=== PATIENT | female | born 1960 | race Caucasian/White ===

== ENCOUNTER 2021-01-15 09:14 | Outpatient (REF) | payer OTHER, SELFPAY ==
[2021-01-15 10:07] LABS: MANUAL DIFF FLAG NO
[2021-01-15 10:15] LABS: Basophils Percent Auto 0.6 % (0-2); Eosinophils Absolute Auto 0.1 X10*3/uL (0.0-0.4); Eosinophils Percent Auto 2.1 % (0-4); Hematocrit 42.7 % (37-47); Hemoglobin 13.8 g/dl (12.0-16.0); Imm Gran Abs Auto 0.01 X10*3/uL (0.00-0.03); Imm Gran Pct Auto 0.2 % (0.0-0.4); Lymphocytes Absolute Auto 2.3 X10*3/uL (1.2-4.9); Lymphocytes Percent Auto 36.5 % (20-40); Mean Corpuscular HGB Conc 32.3 g/dl (31.0-35.0); Mean Corpuscular Hemoglobin 28.8 pg (27.0-33.0); Mean Corpuscular Volume 89.1 fL (80-98); Monocytes Absolute Auto 0.4 X10*3/uL (0.1-1.2); Monocytes Percent Auto 6.1 % (2-11); Neutrophils Absolute Auto 3.4 X10*3/uL (2.0-8.3); Neutrophils Percent Auto 54.5 % (45-73); Platelet Count 399 X10*3/uL (160-400); Red Blood Count 4.79 X10*6/uL (4.20-5.50); Red Cell Distribution Width 13.2 % (11.0-16.0); White Blood Count 6.2 X10*3/uL (4.8-10.8)
[2021-01-15 10:33] LABS: Alanine Aminotransferase 9 U/L (0-31); Albumin Level 4.1 g/dL (3.5-5.0); Alkaline Phosphatase 102 U/L (39-117); Anion Gap 10 (12-20); Aspartate Amino Transferase 15 U/L (5-31); Bilirubin Total 0.4 mg/dL (0.0-1.0); Blood Urea Nitrogen 11 mg/dL (9-16); Calcium 9.4 mg/dL (8.4-10.2); Carbon Dioxide 29 mmol/L (22-29); Chloride 105 mmol/L (96-108); Cholesterol 248 mg/dL; Estimated Glomerular Filt Rate > 60; Glucose Fasting 98 mg/dL (60-99); HDL Cholesterol 50 mg/dL; LDL Cholesterol Calculated 175 mg/dl; Potassium 3.9 mmol/L (3.3-5.1); Sodium 140 mmol/L (135-145); Total Protein 6.9 g/dL (6.5-8.0); Triglycerides 115 mg/dL
[2021-01-17 16:56] LABS: Lyme Abs Screen <0.90 index
== END 2021-01-15 09:15 | disposition home or self-care (01) ==
LOC: HO.LAB 09:14
PROVIDERS: PCP Internal Medicine; Visit Provider Internal Medicine
DX: Z00.00 Encounter for general adult medical examination without abnormal findings (principal); E55.9 Vitamin D deficiency, unspecified
CPT/HCPCS: 36415; 80053; 80061; 82306; 85025; 86617; 86618

== ENCOUNTER 2021-01-24 07:38 | Outpatient (REF) | payer OTHER, SELFPAY ==
--- NOTE | ~2021-01-24 | MM_ITS ---
EXAMINATION: MM SCREENING DIGITAL BREAST TOMOSYNTHESIS, BILATERAL CLINICAL INFORMATION: Screening. Asymptomatic. The lifetime risk of breast cancer based on the Tyrer-Cuzick Model is 4%. COMPARISON: Mammography: 05/27/2014, 04/10/2013 TECHNIQUE: Digital breast tomosynthesis is performed in both the craniocaudal and mediolateral oblique views along with computer-aided detection (CAD). Synthesized 2D images are generated from the tomosynthesis. FINDINGS: There are scattered areas of fibroglandular density (ACR BI-RADS breast composition Category b). There are no significant masses, abnormal calcifications, or other abnormalities. Parenchymal pattern is similar to prior studies. Skin contours are smooth. MM/MM tomosynthesis screening BI IMPRESSION: No mammographic evidence of malignancy. ASSESSMENT: BI-RADS 1: Negative RECOMMENDATION: Routine annual mammography screening. This patient's information was entered into a reminder system with a target due date for their next mammogram.
== END 2021-01-24 07:39 | disposition home or self-care (01) ==
LOC: HO.MAMMO 07:38
PROVIDERS: Visit Provider Internal Medicine
DX: Z12.31 Encounter for screening mammogram for malignant neoplasm of breast (principal)
CPT/HCPCS: 77063; 77067

== ENCOUNTER 2021-05-10 12:13 | Outpatient (REF) | payer OTHER, SELFPAY ==
--- NOTE | ~2021-05-10 | XR_ITS ---
EXAMINATION: XR FOOT, RIGHT CLINICAL INFORMATION: Fall. Right foot injury. Question 1st and 2nd toe fractures. COMPARISON: Right ankle radiographs dated 11/08/2016. TECHNIQUE: AP, lateral, and oblique views of the right foot. FINDINGS: Nondisplaced, oblique fracture through the medial base of the 1st proximal phalanx which contacts the 1st metatarsophalangeal articular surface. No additional fracture or dislocation. No joint space narrowing or marginal osteophytes. No osseous erosion. Small plantar calcaneal spur. XR/XR foot RT min 3V IMPRESSION: Nondisplaced, oblique fracture through the medial base of the 1st proximal phalanx which contacts the 1st metatarsophalangeal articular surface.
== END 2021-05-10 12:14 | disposition home or self-care (01) ==
LOC: HO.XRAY 12:13
PROVIDERS: PCP Internal Medicine; Visit Provider Internal Medicine
DX: S99.912D Unspecified injury of left ankle, subsequent encounter (principal); Z91.81 History of falling
CPT/HCPCS: 73630

== ENCOUNTER 2021-12-21 07:49 | Outpatient (REF) | payer OTHER, SELFPAY ==
[2021-12-21 10:45] LABS: MANUAL DIFF FLAG NO
[2021-12-21 10:54] LABS: Appearance Urine CLEAR; Color Urine YELLOW; Glucose Urine UA NEG (NEG); Leukocyte Esterase Urine NEG (NEG); Nitrite Urine NEG (NEG); PH 5.5 (5.0-8.0); Specific Gravity - Urine >= 1.030 (1.005-1.025); Urine Blood TRACE (NEG); Urine Ketones NEG (NEG); Urine Protein NEG (NEG-TRACE)
[2021-12-21 10:56] LABS: Basophils Absolute Auto 0.1 X10*3/uL (0.0-0.2); Basophils Percent Auto 1.2 % (0-2); Eosinophils Absolute Auto 0.2 X10*3/uL (0.0-0.4); Eosinophils Percent Auto 3.1 % (0-4); Hematocrit 39.3 % (37.0-47.0); Hemoglobin 12.7 g/dl (12.0-16.0); Imm Gran Abs Auto 0.02 X10*3/uL (0.00-0.03); Imm Gran Pct Auto 0.3 % (0.0-0.4); Lymphocytes Absolute Auto 2.6 X10*3/uL (1.2-4.9); Lymphocytes Percent Auto 38.1 % (20-40); Mean Corpuscular HGB Conc 32.3 g/dl (31.0-35.0); Mean Corpuscular Hemoglobin 29.2 pg (27.0-33.0); Mean Corpuscular Volume 90.3 fL (80.0-98.0); Mean Platelet Volume 8.9 fL (9.4-12.3); Monocytes Absolute Auto 0.4 X10*3/uL (0.1-1.2); Neutrophils Absolute Auto 3.5 x10*3/uL (2.0-8.3); Neutrophils Percent Auto 51.3 % (45-73); Platelet Count 370 X10*3/uL (160-400); Red Blood Count 4.35 X10*6/uL (4.20-5.50); Red Cell Distribution Width 12.9 % (11.0-16.0); White Blood Count 6.7 X10*3/uL (4.8-10.8)
[2021-12-21 11:05] LABS: Alanine Aminotransferase 37 U/L (0-31); Albumin Level 3.8 g/dL (3.5-5.0); Alkaline Phosphatase 128 U/L (39-117); Anion Gap 11 (12-20); Aspartate Amino Transferase 43 U/L (5-31); Bilirubin Total 0.5 mg/dL (0.0-1.0); Blood Urea Nitrogen 13 mg/dL (9-16); Calcium 9.2 mg/dL (8.4-10.2); Carbon Dioxide 28 mmol/L (22-29); Chloride 104 mmol/L (96-108); Cholesterol 213 mg/dL; Estimated Glomerular Filt Rate 50; Glucose Fasting 92 mg/dL (60-99); HDL Cholesterol 54 mg/dL; LDL Cholesterol Calculated 143 mg/dl; Potassium 4.1 mmol/L (3.3-5.1); Sodium 139 mmol/L (135-145); Total Protein 6.8 g/dL (6.5-8.0); Triglycerides 83 mg/dL
[2021-12-21 11:29] LABS: Vitamin D 25-OH Total 13.9 ng/mL (>30)
[2021-12-21 11:33] LABS: Calcium Oxalate Crystals Urine 2+ /LPF; RBC Urine 0-2 /HPF (0); Squamous Epithelial Cell Urine TRACE /LPF; WBC Urine 0 /HPF (0-4)
== END 2021-12-21 07:50 | disposition home or self-care (01) ==
LOC: HO.10HDL 07:49
PROVIDERS: Visit Provider Internal Medicine
DX: Z00.00 Encounter for general adult medical examination without abnormal findings (principal)
CPT/HCPCS: 36415; 80053; 80061; 81001; 82306; 85025

== ENCOUNTER 2022-01-25 08:31 | Outpatient (REF) | payer OTHER, SELFPAY ==
--- NOTE | ~2022-01-25 | MM_ITS ---
EXAMINATION: MM SCREENING DIGITAL BREAST TOMOSYNTHESIS, BILATERAL CLINICAL INFORMATION: Screening. Asymptomatic. The lifetime risk of breast cancer based on the Tyrer-Cuzick Model is 4%. COMPARISON: Mammography: 01/24/2021, 05/27/2014, 04/10/2013 TECHNIQUE: Digital breast tomosynthesis is performed in both the craniocaudal and mediolateral oblique views along with computer-aided detection (CAD). Synthesized 2D images are generated from the tomosynthesis. FINDINGS: There are scattered areas of fibroglandular density (ACR BI-RADS breast composition Category b). There are no significant masses, abnormal calcifications, or other abnormalities. No developing density. Parenchymal pattern is similar to prior studies. The axilla and skin contours are unremarkable. MM/MM tomosynthesis screening BI IMPRESSION: No mammographic evidence of malignancy. ASSESSMENT: BI-RADS 1: Negative RECOMMENDATION: Routine annual mammography screening. This patient's information was entered into a reminder system with a target due date for their next mammogram.
--- NOTE | ~2022-01-25 | MM_ITS ---
EXAMINATION: BONE DENSITOMETRY CLINICAL INDICATION: Menopause. COMPARISON: Baseline BD dated 10/22/2009. TECHNIQUE: Using a MobilePro DXA System (software version: 13.1) manufactured by [employer], dual-energy x-ray absorptiometry was performed of the lumbar spine and left hip. The images are of good technical quality. Summary results are attached. FINDINGS: AP SPINE L1-L4: Current: BMD 0.820 g/cm2, Z-score -1.7, T-score -3.0, osteoporosis, 15.6% decrease from baseline (<5% change is not significant). Baseline: BMD 0.971 g/cm2. LEFT FEMUR, NECK: Current: BMD 0.735 g/cm2, Z-score -0.9, T-score -2.2, osteopenia. Baseline: BMD 0.793 g/cm2. LEFT FEMUR, TOTAL: Current: BMD 0.743 g/cm2, Z-score -1.1, T-score -2.1, osteopenia, 6.1% decrease from baseline (<5% change is not significant). Baseline: BMD 0.791 g/cm2. IDENTIFIED RISK FACTORS: Early menopause, secondary osteoporosis, history of fracture (adult). HISTORY OF FRACTURE: Ankle. MEDICATIONS: Vitamin D. MM/XR DEXA axial skeleton IMPRESSION: 1. DIAGNOSIS: Osteoporosis based on the lowest T-score value of -3.0 in the lumbar spine applying World Health Organization criteria. 2. 10-YEAR FRACTURE RISK PREDICTION, FRAX: According to the guidelines, FRAX calculation should only be performed on patients in the osteopenia bone density category. Therefore, FRAX was not performed on this patient. 3. Treatment Recommendations: NOF guidelines recommend consideration for treatment in postmenopausal women and men age 50 and older presenting with the following: -A hip or vertebral (clinical or morphometric) fracture. -T-score less than or equal to -2.5 at the femoral neck or spine after appropriate evaluation to exclude secondary causes. -Low bone mass at the hip or spine and a 10-year fracture probability by FRAX of greater than or equal to 3% for hip fracture or greater than or equal to 20% for major osteoporotic fracture based on the [place] adapted WHO algorithm. 4. Other Recommendations: All treatment decisions require clinical judgment and consideration of individual patient factors, including patient preferences, comorbidities, previous drug use, risk factors not captured in the FRAX model (e.g. frailty, falls, vitamin D deficiency, increased bone turnover, interval significant decline in bone density) and possible under or overestimation of fracture risk by FRAX. Additional medical evaluation for secondary cause of low bone mineral density may be appropriate. FUTURE SCAN RECOMMENDATION: People with diagnosed cases of osteoporosis or at high risk for fracture should have regular bone mineral density tests. For patients eligible for Medicare, routine testing is allowed once every 2 years. The testing frequency can be increased to one year for patients who have rapidly progressing disease, those who are receiving or discontinuing medical therapy to restore bone mass, or have additional risk factors.
== END 2022-01-25 08:32 | disposition home or self-care (01) ==
LOC: HO.MAMMO 08:31
PROVIDERS: PCP Internal Medicine; Visit Provider Internal Medicine
DX: Z13.21 Encounter for screening for nutritional disorder (principal); Z78.0 Asymptomatic menopausal state
CPT/HCPCS: 77063; 77067; 77080

== ENCOUNTER 2022-11-15 12:02 | Outpatient (REF) | payer OTHER, SELFPAY ==
[2022-11-15 13:43] LABS: MANUAL DIFF FLAG NO
[2022-11-15 13:47] LABS: Basophils Percent Auto 0.6 % (0-2); Eosinophils Absolute Auto 0.1 X10*3/uL (0.0-0.4); Eosinophils Percent Auto 2.2 % (0-4); Hematocrit 37.3 % (37.0-47.0); Hemoglobin 12.4 g/dl (12.0-16.0); Imm Gran Abs Auto 0.01 X10*3/uL (0.00-0.03); Imm Gran Pct Auto 0.2 % (0.0-0.4); Lymphocytes Absolute Auto 2.1 X10*3/uL (1.2-4.9); Lymphocytes Percent Auto 32.4 % (20-40); Mean Corpuscular HGB Conc 33.2 g/dl (31.0-35.0); Mean Corpuscular Volume 90.3 fL (80.0-98.0); Mean Platelet Volume 9.5 fL (9.4-12.3); Monocytes Absolute Auto 0.4 X10*3/uL (0.1-1.2); Monocytes Percent Auto 6.9 % (2-11); Neutrophils Absolute Auto 3.7 x10*3/uL (2.0-8.3); Neutrophils Percent Auto 57.7 % (45-73); Platelet Count 347 X10*3/uL (160-400); Red Blood Count 4.13 X10*6/uL (4.20-5.50); Red Cell Distribution Width 13.5 % (11.0-16.0); White Blood Count 6.4 X10*3/uL (4.8-10.8)
[2022-11-15 14:18] LABS: Alanine Aminotransferase 6 U/L (0-31); Albumin Level 3.8 g/dL (3.5-5.0); Alkaline Phosphatase 92 U/L (39-117); Anion Gap 11 (12-20); Aspartate Amino Transferase 17 U/L (5-31); Bilirubin Total 0.7 mg/dL (0.0-1.0); Blood Urea Nitrogen 10 mg/dL (9-16); Calcium 8.9 mg/dL (8.4-10.2); Carbon Dioxide 28 mmol/L (22-29); Chloride 107 mmol/L (96-108); Cholesterol 227 mg/dL; Estimated Glomerular Filt Rate 59; Glucose Fasting 85 mg/dL (60-99); HDL Cholesterol 52 mg/dL; LDL Cholesterol Calculated 155 mg/dl; Potassium 3.7 mmol/L (3.3-5.1); Sodium 142 mmol/L (135-145); Total Protein 6.5 g/dL (6.5-8.0); Triglycerides 100 mg/dL
[2022-11-15 14:39] LABS: Free T4 (Free Thyroxine) 1.05 ng/dL (0.71-1.85); Thyroid Stimulating Hormone 1.12 uIU/mL (0.32-4.0); Vitamin D 25-OH Total 27.6 ng/mL (>30)
== END 2022-11-15 12:03 | disposition home or self-care (01) ==
LOC: HO.10HDL 12:02
PROVIDERS: Visit Provider Internal Medicine
DX: Z00.00 Encounter for general adult medical examination without abnormal findings (principal); E03.9 Hypothyroidism, unspecified
CPT/HCPCS: 36415; 80053; 80061; 82306; 84439; 84443; 85025

== ENCOUNTER 2023-03-28 10:45 | Outpatient (REF) | payer OTHER, SELFPAY ==
[2023-03-29 01:59] LABS: Anion Gap 11 (12-20); Blood Urea Nitrogen 18 mg/dL (9-16); Calcium 9.1 mg/dL (8.4-10.2); Carbon Dioxide 28 mmol/L (22-29); Chloride 106 mmol/L (96-108); Estimated Glomerular Filt Rate > 60; Glucose Random 86 mg/dL (60-115); Potassium 3.9 mmol/L (3.3-5.1); Sodium 141 mmol/L (135-145)
== END 2023-03-28 10:46 | disposition home or self-care (01) ==
LOC: HO.10HDL 10:45
PROVIDERS: Visit Provider Internal Medicine
DX: I10 Essential (primary) hypertension (principal)
CPT/HCPCS: 36415; 80048

== ENCOUNTER 2023-06-26 08:09 | Day surgery (SDC) | payer OTHER, SELFPAY ==
--- NOTE | 2023-06-25 08:53 | HO.ANESPROP2 ---
Documented by User: Lachelle Calhoun NP 06/25/23 08:54 HPI - Anesthesia Eval Consult details Narrative: 63yo F for Colonoscopy PMFSH Past Medical History Medical History Hx of hyperlipidemia GERD (gastroesophageal reflux disease) Kirstin's thyroiditis HTN (hypertension) Surgical History Surgical History Hx of colonoscopy Social History Social History Patient Tobacco Use Status: Never used Tobacco Meds Allergies Allergy/AdvReac Type Severity Reaction Status Date / Time No Known Allergies Allergy Verified 06/25/23 08:54 Home Medications Medication Instructions Recorded Confirmed Last Taken Type amitriptyline 50 mg tablet 50 mg PO BEDTIME 06/25/23 06/25/23 Unknown History atorvastatin 10 mg tablet 10 mg PO DAILY 06/25/23 06/25/23 Unknown History bromfenac 0.07 % eye drops drp ophthalmic (eye) 06/25/23 Unknown History (Prolensa) lisinopril 10 mg tablet 10 mg PO DAILY 06/25/23 06/25/23 Unknown History moxifloxacin 0.5 % eye drops drp ophthalmic (eye) 06/25/23 Unknown History omeprazole 20 mg capsule,delayed 20 mg PO DAILY 06/25/23 06/25/23 Unknown History release topiramate 25 mg tablet 25 mg PO BID 06/25/23 06/25/23 Unknown History Exam Exam Date and Time: June 25, 2023 0853 Pertinent Lab Results Pertinent Lab Results: Laboratory Tests 11/15/22 03/28/23 12:07 10:50 WBC 6.4 Hgb 12.4 Hct 37.3 Plt Count 347 Sodium 141 Potassium 3.9 Chloride 106 Carbon Dioxide 28 BUN 18 H Creatinine 0.94 Assessment and Plan Assessment Anesthesia Assessment: Chart Reviewed Documented by User: Eulalia Roy MD 06/26/23 11:25 [facility] Active Problems Active Problems: Off meds for Cholesterol Migraine headaches. Uses sumatriptan Past Medical History Medical History Hx of hyperlipidemia GERD (gastroesophageal reflux disease) Kirstin's thyroiditis HTN (hypertension) Family History Family history of problems with anesthesia: No Surgical History Surgical History Hx of colonoscopy History of Problems with Anesthesia: No (headache/ migraine after last colonoscopy ) Social History Social History Patient Tobacco Use Status: Never used Tobacco Meds Allergies Allergy/AdvReac Type Severity Reaction Status Date / Time No Known Allergies Allergy Verified 06/25/23 08:54 Home Medications Medication Instructions Recorded Confirmed Last Taken Type amitriptyline 50 mg tablet 50 mg PO BEDTIME 06/25/23 06/25/23 Unknown History atorvastatin 10 mg tablet 10 mg PO DAILY 06/25/23 06/25/23 Unknown History bromfenac 0.07 % eye drops drp ophthalmic (eye) 06/25/23 Unknown History (Prolensa) lisinopril 10 mg tablet 10 mg PO DAILY 06/25/23 06/25/23 Unknown History moxifloxacin 0.5 % eye drops drp ophthalmic (eye) 06/25/23 Unknown History omeprazole 20 mg capsule,delayed 20 mg PO DAILY 06/25/23 06/25/23 Unknown History release topiramate 25 mg tablet 25 mg PO BID 06/25/23 06/25/23 Unknown History Exam Height,Weight and Vital Signs: Height 5 ft 2 in Weight 61.235 kg Vital Signs Temp Pulse Resp BP Pulse Ox O2 Del Method 06/26/23 09:11 97.9 F 76 18 138/97 H 98 Room Air Airway Mallampati Class: II TM Dist: >3cm (small face) Neck ROM: Full Loose/Missing/Broken Teeth: No (Denies broken, loose, missing teeth) Heart: RRR Lungs: CTAB Assessment and Plan Assessment Anesthesia Assessment: Anesthesia Plan Discussed Final Anesthetic Review Family History of Problems with Anesthesia: No History of Problems with Anesthesia: No (headache/ migraine after last colonoscopy ) NPO: Yes ASA Class: II Final Preanesthetic Review: No Changes in Pt Med Stat, Meds/Allgs Chart Reviewed, Consent Obtained/Reviewed and Anes Risks/Benef Reviewed Patient Risk: Low Procedure Risk: Low Assessment/Block/Sedation in SS: Assess/Block/Sedation-SS Anesthetic Plan Anesthetic Plan: MAC: Disposition: Standard PACU
[2023-06-26 06:07] VITALS: BMI 24.7
[2023-06-26] MEDS: Lactated Ringers 1,000 ML 100 ML IVCONT (09:05)
[2023-06-26 09:11] VITALS: BP 138/97; PULSE 76; RESP 18; TEMP 36.6; O2SAT 98
--- NOTE | 2023-06-26 10:02 | MHC.SHP ---
Pre-Procedural Eval Section A Date of Service: 06/26/23 The patient is an INPATIENT: No Changes since office visit: No Cold of Flu in the past 2 weeks, No New Medical Problems, No Changes in Medication and No Patient answered all questions The History & Physical has been completed within 30 days and I have reviewed it.: Yes Section B Chief Complaint: Encounter for screening for malignant neoplasm of Allergies: Allergies Allergy/AdvReac Type Severity Reaction Status Date / Time No Known Allergies Allergy Verified 06/25/23 08:54 Plan I have reviewed the history and physical and performed a pertinent physical examination on my patient. No changes have occurred unless specified. Time Spent With Patient Time: Total time managing care of this patient today ____ minutes.
--- NOTE | 2023-06-26 10:48 | PM.OP ---
Brief Operative Note Date of Service: 06/26/23 Pre-op diagnosis: screening Post-op diagnosis: same Surgeon: Flo Rolon MD Anesthesia: MAC Was an Passenger [employer] Super[employer] used for this Procedure?: No Estimated blood loss (mL): 0 Tourniquet time (min): 0 Pathology: none sent Condition: stable Disposition: PACU
[2023-06-26 10:54] VITALS: BP 159/91; PULSE 89; RESP 18; TEMP 36.2; O2SAT 98
[2023-06-26 11:09] VITALS: BP 140/74; PULSE 73; RESP 16; TEMP 36.2; O2SAT 99
--- NOTE | 2023-06-26 11:33 | OP_ITS ---
DATE OF SERVICE: 06/26/2023 SURGEON: Flo Rolon MD INDICATIONS: Colon cancer screening. PREOPERATIVE DIAGNOSIS: POSTOPERATIVE DIAGNOSIS: PROCEDURE PERFORMED: Colonoscopy to the terminal ileum. ESTIMATED BLOOD LOSS: COMPLICATIONS: ANESTHESIA: Monitored anesthesia care. ASSISTANTS: SPECIMENS: DESCRIPTION OF PROCEDURE: A history and physical was performed. The risks and benefits of the procedure were explained to the patient and informed consent was obtained. The patient was placed in the left lateral decubitus position. A digital rectal exam was performed and was found to be normal. The Olympus pediatric video colonoscope was introduced into the rectum and advanced to the cecum. The cecum was identified by transillumination, palpation, and identification of ileocecal valve. Examination was performed. The scope was removed. She tolerated the procedure well and was returned to the recovery area in stable condition. FINDINGS: The terminal ileum was examined and appeared normal. The visualized colonic mucosa was normal. The quality of prep was fair with some retained liquid stool and undigested food material. This was washed and suctioned as best possible. No polyps were identified. The areas that were not well seen were in the cecum and splenic flexure. Retroflexed examination was normal. There was focal hyperpigmentation in the rectosigmoid. IMPRESSION: Normal colonoscopy. RECOMMENDATIONS: 1. Follow up as needed. 2. Repeat colonoscopy is recommended in 10 years for average risk individuals. 5 year followup could be considered based on the limitations of today's prep. MD CATINA Lema/KATHIAL / [phone]
== END 2023-06-26 11:42 | disposition home or self-care (01) ==
PROVIDERS: PCP Internal Medicine; Visit Provider Internal Medicine Gastroenterology
PROC: 0DJD8ZZ Inspection of Lower Intestinal Tract, Via Natural or Artificial Opening Endoscopic (ICD-10-PCS; CPT 45378; principal; 2023-06-26 10:20)
DX: Z12.11 Encounter for screening for malignant neoplasm of colon (principal); K58.2 Mixed irritable bowel syndrome; L81.8 Other specified disorders of pigmentation; I10 Essential (primary) hypertension; E06.3 Autoimmune thyroiditis; Z79.899 Other long term (current) drug therapy
CPT/HCPCS: 45378; J2405; J2765

== ENCOUNTER 2024-06-09 17:46 | Emergency (ER) | payer OTHER, SELFPAY ==
--- NOTE | ~2024-06-09 | CT_ITS ---
EXAMINATION: CT ANGIOGRAM HEAD CT ANGIOGRAM NECK CLINICAL INFORMATION: Stroke Protocol l sided weakness with aphasia COMPARISON: Same day noncontrast head CT TECHNIQUE: Initial noncontrast employee welfare manager imaging of the head and neck was performed. Noncontrast head CT was also performed. Test bolus sequences followed by intravenous administration 70 mL of , Omnipaque 350. Helical imaging was performed in the axial plane from the aortic arch to the skull vertex. Delayed postcontrast imaging of the head was also performed. The data was processed at the cardiopulmonary technologist workstation for generation of MIP sequences. Angled MIPs and volume rendered reformatted images were also generated at an offline 3D workstation. Stenoses are assessed in accordance with NASCET criteria unless otherwise indicated. DLP: 1320 mGy-cm This CT examination was performed using dose optimization techniques as appropriate, variously including the following: *Automated exposure control. *Adjustment of mA and/or kV according to patient size (this includes techniques or standardized protocols for targeted exams where dose is matched to indication/reason for exam; i.e. extremities or head). *Use of iterative reconstruction technique. FINDINGS: CT Head: There is no evidence of acute intracranial hemorrhage or edematous territorial infarction. A few foci of hypoattenuation in the periventricular and deep white matter are consistent with mild microangiopathy. Power-white matter differentiation is preserved. The ventricles are normal in size and configuration. No evidence for obstructive hydrocephalus. No abnormal mass effect or midline shift. No extra-axial fluid collections. No pathologic intra-axial enhancement or regional oligemia. No acute soft tissue or osseous abnormalities. The mastoid air cells and paranasal sinuses are clear. CT Neck: Enlarged multinodular thyroid gland. The remaining cervical soft tissues are within normal limits. Multilevel cervical spondylosis. T3 and T5 vertebral body hemangiomas. CT Upper Chest: The visualized lung apices and upper mediastinum are within normal limits. Neck CTA: Aortic Arch: Normal contour and caliber. Classic 3 vessel branching pattern of the aortic arch. Great Vessel Origins: No significant stenosis of the branch origins. Right Common Carotid Artery: No focal stenosis or occlusion. Cervical Right Internal Carotid Artery: Normal opacification without focal stenosis or occlusion. Left Common Carotid Artery: No focal stenosis or occlusion. Cervical Left Internal Carotid Artery: Normal opacification without focal stenosis or occlusion. Cervical Right Vertebral Artery: No focal stenosis or occlusion. Cervical Left Vertebral Artery: No focal stenosis or occlusion. Brain CTA: CTA of the head is somewhat technically limited secondary to extensive venous contamination. Intracranial Internal Carotid Arteries: No focal stenosis or occlusion. Right Anterior Cerebral Artery: Normal A1 segment. Normal opacification of the distal JUSTIN segments. Left Anterior Cerebral Artery: Normal A1 segment. Normal opacification of the distal JUSTIN segments. Anterior Communicating Artery: Normal. Right Middle Cerebral Artery: Normal M1 segment of the MCA without focal stenosis or occlusion. Normal arborization of the distal segments. Left Middle Cerebral Artery: Normal M1 segment of the MCA without focal stenosis or occlusion. Normal arborization of the distal segments. Right Vertebral Artery: Normal V4 segment. Left Vertebral Artery: Normal V4 segment. Basilar Artery: Normal without focal stenosis or occlusion. Normal appearance of the proximal superior cerebellar arteries. Right Posterior Cerebral Artery: The P1 segment is diminutive. origin of the HEDGE FUND ACCOUNTANT with robust opacification of the posterior communicating artery. Normal opacification of the distal HEDGE FUND ACCOUNTANT segments. Left Posterior Cerebral Artery: configuration.. Normal opacification of the distal HEDGE FUND ACCOUNTANT segments. Normal opacification of the superior sagittal, straight, transverse, and sigmoid sinuses. CT/CT angio head neck stroke IMPRESSION: 1. No significant arterial narrowing or occlusion in the neck. 2. Somewhat technically limited CTA of the head related to contrast bolus timing and extensive venous contamination. Within this limitation, no evidence of proximal intracranial arterial high-grade stenosis or large vessel occlusion. 3. Enlarged multinodular thyroid gland. Recommend further assessment with thyroid ultrasound and correlation with thyroid function tests. Impression #1 and [address] Mayer on 06/09/2024 5:47 PM CDT Electronically signed by: Samuel Nam MD 06/09/2024 06:55 PM EDT
--- NOTE | ~2024-06-09 | CT_ITS ---
EXAMINATION: CT HEAD WITHOUT CONTRAST (STROKE PROTOCOL) CLINICAL INFORMATION: Stroke protocol. Left-sided weakness COMPARISON: CT of May 07, 2014 TECHNIQUE: Contiguous axial imaging was performed from the skull base to vertex without intravenous administration of contrast. Coronal and sagittal reformatted images are performed at CT scanner This CT examination was performed using dose optimization techniques as appropriate, variously including the following: *Automated exposure control *Adjustment of mA and/or kV according to patient size (this includes techniques or standardized protocols for targeted exams where dose is matched to indication/reason for exam; i.e. extremities or head) *Use of iterative reconstruction technique DLP: 562 mGy-cm FINDINGS: There is no evidence of acute intracranial hemorrhage or territorial infarction. No abnormal mass-effect or midline shift is seen. Power to white matter differentiation is well preserved. No extra-axial fluid collections are identified. Ventricles and sulci are proportional. There is no abnormal attenuation within the brain parenchyma. There is no osseous abnormality. The mastoid air cells and visualized portions of the paranasal sinuses are well-aerated. CT/CT head for stroke IMPRESSION: No acute intracranial pathology. This critical result was discussed with Dr. Mayer at 1816 hours hours on 06/09/2024. It was ascertained that the content and urgency of the report was understood at the time of direct communication. Electronically signed by: Adilson Torrez MD 06/09/2024 06:21 PM EDT
--- NOTE | 2024-06-09 17:50 | ECG_ITS ---
Test Reason : STROKE Blood Pressure : / mmHG Vent. Rate : 080 BPM Atrial Rate : 080 BPM P-R Int : 160 ms QRS Dur : 076 ms QT Int : 390 ms P-R-T Axes : 053 -14 023 degrees QTc Int : 449 ms Normal sinus rhythm Minimal voltage criteria for LVH, may be normal variant ( R in aVL ) Borderline ECG No previous ECGs available Referred By: Wild Garcia Electronically Signed By:MISSAEL STARKEY
[2024-06-09 17:55] VITALS: BP 166/103; BP 170/100; PULSE 89; PULSE 90; RESP 18; TEMP 36.8; O2SAT 100; O2SAT 97; BMI 26.0
[2024-06-09 18:01] LABS: MANUAL DIFF FLAG NO
--- NOTE | 2024-06-09 18:01 | ED.NEUROSD ---
HPI - Neuro Symptoms/Deficit General Chief Complaint: Stroke Stated Complaint: LKW 25 mins ago, Lside, garble speech, stroke Time Seen by Provider: 06/09/24 17:50 Source: patient Mode of arrival: EMS Limitations: no limitations History of Present Illness ED Provider: lissa JAMISON Narrative: Patient is 61 years old with hypertension migraine comes here for sudden onset of left-sided numbness tingling decreased sensations left upper extremity and difficulty in speaking while talking to her sister on the phone started at 1715 lasted for about 5 minutes when the EMS reached does no weakness noticed stroke scale was 0 Related Data Home Medications ?Medication ?Instructions ?Recorded ?Confirmed amitriptyline 50 mg tablet 50 mg PO BEDTIME 06/25/23 06/25/23 atorvastatin 10 mg tablet 10 mg PO DAILY 06/25/23 06/25/23 bromfenac 0.07 % eye drops drp ophthalmic (eye) 06/25/23 (Prolensa) lisinopril 10 mg tablet 10 mg PO DAILY 06/25/23 06/25/23 moxifloxacin 0.5 % eye drops drp ophthalmic (eye) 06/25/23 omeprazole 20 mg capsule,delayed 20 mg PO DAILY 06/25/23 06/25/23 release topiramate 25 mg tablet 25 mg PO BID 06/25/23 06/25/23 Previous Rx's ?Medication ?Instructions ?Recorded [id number]-[id number] 1 tab PO Q6H PRN haeadace #20 tabs 06/09/24 50 mg-325 mg-40 mg tablet sumatriptan succinate 50 mg tablet 50 mg PO Q2H PRN migraine headache 06/09/24 (Imitrex) #10 tabs Allergies Allergy/AdvReac Type Severity Reaction Status Date / Time No Known Allergies Allergy Verified 06/09/24 17:56 Review of Systems Review of Systems: Yes all other systems are reviewed and are negative PMFSH Past Medical History Medical History Hx of hyperlipidemia GERD (gastroesophageal reflux disease) Kirstin's thyroiditis HTN (hypertension) Surgical History Hx of colonoscopy Social History Social History Patient Tobacco Use Status: Never used Tobacco Smoked in Last 30 Days: No Use of substances other than those prescribed or required for medical reasons: No Advance Directives: No Advance Directives Information Provided: No Do you have a plan to hurt others: No Plan Patient : No Physical Exam Vital Signs: Vital Signs: Last Vital Signs Temp 98.3 F 06/09/24 20:47 Pulse 88 06/09/24 20:47 Resp 16 06/09/24 20:47 BP 141/95 H 06/09/24 20:47 Pulse Ox 95 06/09/24 20:47 O2 Del Method Room Air 06/09/24 20:47 BMI result Body Mass Index 26.0 Appearance: Alert. Oriented X3. No acute distress. Eyes: PERRLA, No Nystagmus ENT: Pharynx normal. Oral Mucosa moist Neck: Normal inspection. Neck supple. CVS: Normal heart rate and rhythm. Pulses normal. Respiratory: No respiratory distress. Equal air entry bilateral, no wheezing/rales/rhonchi Abdomen: Soft and nontender. Bowel sounds are present, no mass palpable, no CVA tenderness Skin: Skin warm and dry. Normal skin color. Normal skin turgor. Extremities: No lower extremity edema. No calf tenderness Neuro: Oriented X 3. No motor deficit. No sensory deficit.No cerebellar signs , cranial nerves II-XII intact Medications Administered Discontinued Medications Generic Name Dose Route Start Last Admin Trade Name Freq PRN Reason Stop Dose Admin Iohexol 100 ml 06/09/24 18:13 06/09/24 18:14 Iohexol 350 Mg/Ml 100 Ml Infus..Btl IV 06/09/24 18:14 70 ml ONCE ONE Administration Ondansetron HCl 4 mg 06/09/24 18:49 06/09/24 19:55 Ondansetron Hcl 4 Mg/2 Ml Vial IVPUSH 06/09/24 18:50 4 mg ONCE ONE Administration Sumatriptan Succinate 6 mg 06/09/24 18:48 06/09/24 20:23 Sumatriptan Succinate 6 Mg/0.5 Ml Vial SUBCUT 06/09/24 18:49 6 mg ONCE ONE Administration Medical Decision Making Medical Decision Making MDM Narrative: Patient with acute onset of left-sided weakness followed by headache on the right side CT head CTA negative for acute symptoms improved within few minutes no residual weakness on arrival likely patient's symptoms from migraine. Patient's headache improved after Imitrex Differential Diagnosis Differential Diagnoses: The differential diagnosis associated with the presentation includes CVA/migraine with neurological findings/TIA Admission/Observation Consideration of admission/observation: Escalation of care including admission/observation considered Lab Data MDM Lab Attestation statement: I reviewed the patient's lab results. 06/09/24 17:54 06/09/24 17:54 Labs: Lab Results 06/09/24 Range/Units 17:54 WBC 7.4 (4.8-10.8) X10*3/uL RBC 4.12 L (4.20-5.50) X10*6/uL Hgb 12.5 (12.0-16.0) g/dl Hct 36.6 L (37.0-47.0) % MCV 88.8 (80.0-98.0) fL MCH 30.3 (27.0-33.0) pg MCHC 34.2 (31.0-35.0) g/dl RDW 12.7 (11.0-16.0) % Plt Count 330 (160-400) X10*3/uL MPV 8.1 L (9.4-12.3) fL Immature Gran % (Auto) 0.3 (0.0-0.4) % Neut % (Auto) 46.5 (45-73) % Lymph % (Auto) 41.4 H (20-40) % [place] % (Auto) 8.1 (2-11) % Eos % (Auto) 2.8 (0-4) % Baso % (Auto) 0.9 (0-2) % Lymph # (Auto) 3.1 (1.2-4.9) X10*3/uL [place] # (Auto) 0.6 (0.1-1.2) X10*3/uL Eos # (Auto) 0.2 (0.0-0.4) X10*3/uL Baso # (Auto) 0.1 (0.0-0.2) X10*3/uL Abs Immat Gran (auto) 0.02 (0.00-0.03) X10*3/uL Absolute Neuts (auto) 3.5 (2.0-8.3) x10*3/uL Absolute Nucleated RBC 0.000 (0.0-0.012) X10*3/uL Nucleated RBC % (auto) 0.0 (0.0-0.2) /100WBC Hold Purple Top SEE NOTE PT 10.4 L (10.9-12.4) SEC INR 0.9 (0.9-1.1) APTT 29.0 (26.0-36.8) SEC Sodium 139 (135-145) mmol/L Potassium 4.1 (3.3-5.1) mmol/L Chloride 105 (96-108) mmol/L Carbon Dioxide 24 (22-29) mmol/L Anion Gap 14 (12-20) BUN 11 (9-16) mg/dL Creatinine 1.12 (0.5-1.4) mg/dL Estim Creat Clear Calc 45.3 Estimated GFR 49 Random Glucose 108 (60-115) mg/dL Calcium 9.4 (8.4-10.2) mg/dL Troponin I High Sens < 2.7 (<3.5-17.0) ng/L Triglycerides 187 H (<150) mg/dL Cholesterol 256 H (<200) mg/dL LDL Cholesterol, Calc 160 H (<100) mg/dL HDL Cholesterol 59 (>40) mg/dL Radiology Impression Discussion of test interpretation with radiology: I have reviewed the radiologist's reading. Radiologist Impression: Negative CT head and negative CTA head and neck NIH Stroke Scale Internal: Initial- Upon Arrival Level of Consciousness: Alert Best Gaze: Normal Visual: No visual loss Facial Palsy: Normal Motor Arm (Right): No drift Motor Arm (Left): No drift Motor Leg (Right): No drift Motor Leg (Left): No drift Limb Ataxia: Absent Sensory: Normal Best Language: No aphasia Dysarthia: Normal Extinction and Inattention: No abnormality Critical Care Time Critical Care Time Critical Care Time: Yes Total Critical Care Time: 55 Attestation: The patient was critically ill with a high probability of imminent or life threatening deterioration. I spent greater than 60??minutes of discontinuous time evaluating the patient,delivering critical care at the bedside, discussing and evaluating pertinent data with consultants. Critical care time does not include time spent performing separately billable procedures or teaching. Total time spent performing critical care was 55???minutes. Discharge Plan Discharge Clinical Impression: Migraine Patient Disposition: Home, Self-Care Instructions: Migraine Headache (ED) Additional Instructions: Your symptoms were from the migraine headache No finding of stroke were seen Take Imitrex as prescribed 1 tablet at onset of headache may repeat in 2 hours if headache continues maximum 2 tablets in 24 hours Also you may take Fioricet 1 tablet every 6 hours if headache continues Follow with your PCP Prescriptions: New sumatriptan succinate [Imitrex] 50 mg tablet 50 mg PO Q2H PRN (Reason: migraine headache) Qty: 10 0RF Rx Instructions: do not exceed 2 doses per 24 hrs [id number]-jdoyzscogikwj-nzji 50-325-40 mg tablet 1 tab PO Q6H PRN (Reason: haeadace) Qty: 20 0RF No Action atorvastatin 10 mg tablet 10 mg PO DAILY topiramate 25 mg tablet 25 mg PO BID amitriptyline 50 mg tablet 50 mg PO BEDTIME lisinopril 10 mg tablet 10 mg PO DAILY omeprazole 20 mg capsule,delayed release(DR/EC) 20 mg PO DAILY moxifloxacin 0.5 % drops ophthalmic (eye) Prolensa 0.07 % drops ophthalmic (eye) Interventions: ED Discharge Assessment Last Done: 06/09/24 20:47 Discharge Date/Time: 06/09/24 20:51 Print Language: Frisian
[2024-06-09 18:05] LABS: Basophils Absolute Auto 0.1 X10*3/uL (0.0-0.2); Basophils Percent Auto 0.9 % (0-2); Eosinophils Absolute Auto 0.2 X10*3/uL (0.0-0.4); Eosinophils Percent Auto 2.8 % (0-4); Hematocrit 36.6 % (37.0-47.0); Hemoglobin 12.5 g/dl (12.0-16.0); Imm Gran Abs Auto 0.02 X10*3/uL (0.00-0.03); Imm Gran Pct Auto 0.3 % (0.0-0.4); Lymphocytes Absolute Auto 3.1 X10*3/uL (1.2-4.9); Lymphocytes Percent Auto 41.4 % (20-40); Mean Corpuscular HGB Conc 34.2 g/dl (31.0-35.0); Mean Corpuscular Hemoglobin 30.3 pg (27.0-33.0); Mean Corpuscular Volume 88.8 fL (80.0-98.0); Mean Platelet Volume 8.1 fL (9.4-12.3); Monocytes Absolute Auto 0.6 X10*3/uL (0.1-1.2); Monocytes Percent Auto 8.1 % (2-11); Neutrophils Absolute Auto 3.5 x10*3/uL (2.0-8.3); Neutrophils Percent Auto 46.5 % (45-73); Platelet Count 330 X10*3/uL (160-400); Red Blood Count 4.12 X10*6/uL (4.20-5.50); Red Cell Distribution Width 12.7 % (11.0-16.0); White Blood Count 7.4 X10*3/uL (4.8-10.8)
[2024-06-09 18:11] LABS: INTERNATIONAL NORM RATIO 0.9 (0.9-1.1); Prothrombin Time 10.4 SEC (10.9-12.4)
[2024-06-09] MEDS: iohexoL 350 MG/ML 100 ML INFUS..BTL IV (18:14)
[2024-06-09 18:17] LABS: Stroke Lab Use COMPLETE
[2024-06-09 18:18] LABS: Anion Gap 14 (12-20); Blood Urea Nitrogen 11 mg/dL (9-16); Calcium 9.4 mg/dL (8.4-10.2); Carbon Dioxide 24 mmol/L (22-29); Chloride 105 mmol/L (96-108); Cholesterol 256 mg/dL (<200); Creatinine Clr Calc Pharmacy 45.3; Estimated Glomerular Filt Rate 49; Glucose Random 108 mg/dL (60-115); HDL Cholesterol 59 mg/dL (>40); LDL Cholesterol Calculated 160 mg/dL (<100); Potassium 4.1 mmol/L (3.3-5.1); Sodium 139 mmol/L (135-145); Triglycerides 187 mg/dL (<150)
[2024-06-09 18:25] LABS: Troponin-I High Sensitivity < 2.7 ng/L (<3.5-17.0)
[2024-06-09] MEDS: ondansetron HCL 4 MG/2 ML VIAL IVPUSH (19:55)
[2024-06-09] MEDS: SUMAtriptan succinate 6 MG/0.5 ML VIAL SUBCUT (20:23)
[2024-06-09 20:47] VITALS: BP 141/95; PULSE 88; RESP 16; TEMP 36.8; O2SAT 95
== END 2024-06-09 20:51 | disposition home or self-care (01) ==
PROVIDERS: Emergency Provider Internal Medicine; PCP Internal Medicine
DX: G43.909 Migraine, unspecified, not intractable, without status migrainosus (principal); R20.2 Paresthesia of skin; R29.700 NIHSS score 0; I10 Essential (primary) hypertension; Z79.899 Other long term (current) drug therapy; Z79.02 Long term (current) use of antithrombotics/antiplatelets
CPT/HCPCS: 36415; 70450; 70496; 70498; 80048; 80061; 84484; 85025; 85610; 85730; 93005; 96372; 96374; 99284; J2405; J3030; Q9967

== ENCOUNTER 2024-07-09 06:58 | Outpatient (REF) | payer OTHER, SELFPAY ==
[2024-07-09 08:00] LABS: Cholesterol 220 mg/dL (<200); HDL Cholesterol 57 mg/dL (>40); LDL Cholesterol Calculated 146 mg/dL (<100); Triglycerides 88 mg/dL (<150)
[2024-07-09 08:18] LABS: Free T4 (Free Thyroxine) 0.87 ng/dL (0.71-1.85); Thyroid Stimulating Hormone 2.25 uIU/mL (0.32-4.0); Vitamin D 25-OH Total 51.8 ng/mL (>30)
[2024-07-10 18:08] LABS: Thyroid Peroxidase Antibodies 600 IU/mL (<9)
== END 2024-07-09 06:59 | disposition home or self-care (01) ==
LOC: HO.LAB 06:58
PROVIDERS: PCP Internal Medicine; Visit Provider Internal Medicine
DX: I10 Essential (primary) hypertension (principal); E55.9 Vitamin D deficiency, unspecified
CPT/HCPCS: 36415; 80061; 82306; 84439; 84443; 86376

== ENCOUNTER 2025-03-16 14:52 | Outpatient (AMB) | payer OTHER, SELFPAY ==
--- NOTE | 2025-03-16 14:56 | MHC.PC.OV ---
Vital Signs 03/16/25 15:03 Height 5 ft 2 in Weight 61.689 kg BMI 24.9 BP 134/94 H Blood Pressure Location Lt brachial Position Sitting Respiration 16 Pulse 90 Temp 97.8 F Temp Source Temporal Artery Scan Pulse Oximetry (%) 96 Oxygen Delivery Method Room Air Intake Visit Reasons: thyroid - see comments Director Of Infection Prevention Required: No Accompanied by: Self / Same As Patient Allergies No Known Allergies Allergy (Verified 03/16/25 14:56) Medication List - Last Reconciled 03/16/25 by SUSAN Sorenson amitriptyline 50 mg PO BEDTIME aspirin 81 mg PO DAILY buspirone 10 mg PO BID PRN xygfvsrozs-civfddjbtwhum-spuf 50-325-40 mg 1 tab PO Q6H PRN chlordiazepoxide-clidinium 5-2.5 mg (Librax (with clidinium)) 1 cap PO TID lisinopril 10 mg PO DAILY multivitamin 1 tab PO DAILY omeprazole 20 mg PO DAILY sumatriptan succinate (Imitrex) 50 mg PO Q2H PRN triamcinolone acetonide 0.1% 1 appl topical BID PRN HPI HPI Comments History of Present Illness Details 65-year-old female with history of hyperlipidemia, hypertension, complex migraines, GERD, 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 Hypertension-blood pressure 150/98. She has not been taking lisinopril. Does take blood pressures at home and reports these have been elevated as well Hyperlipidemia-previously on statin Complex migraines-follows with Dr. Santos. On amitriptyline for prevention using Imitrex as needed. 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 Previous US available for review shows thyroid normal in size but with multiple nodules, largest R 1.6 x .1 x 4.9cm, heterogenous. Reports compressive symptoms with hoarse voice ongoing x 1 years. No pain or dysphagia. Symptomatic with cold intolerance, hair loss, fatigue. IBS- using librex for prevention Osteoporosis-taking daily vitamin, but unsure of dose of vitamin-D and calcium. Or due for DEXA scan, last T-score -3 Concerns: Reports purple spots on the arms bilaterally. Does take aspirin Hair loss as above Itchy rash on the elbows bilaterally. No known history of psoriasis Health Maintenance: Due for screening mammogram Due for dexa scan Colonoscopy UTD ROS: General: No fevers, malaise, unintentional weight loss HEENT: No blurred vision, diplopia. No sore throat, nasal congestion, rhinorrhea, sinus pain, ear pain Cardiovascular: No chest pain, palpitations, or leg edema Respiratory: No shortness of breath, wheezing, cough GI: No abdominal pain, nausea, vomiting, diarrhea, constipation, melena, hematochezia : No dysuria, hematuria, increased urinary frequency, decreased urinary output MSK: No myalgia, back pain Neuro: No headaches, weakness, paresthesias Skin: No rashes or lesions EXAM: Constitutional - Awake and Alert, No apparent distress Eyes - PERRL Neck - supple, large right nodule upper thyroid nodule nontender to palpation Cardiovascular - S1S2, RRR, No edema Respiratory - Normal lung expansion, Normal respiratory effort, No respiratory distress, CTA bilaterally Extremities - no calf tenderness bilaterally, no swelling Skin - Warm/Dry. scattered petechiae of the upper extremities. Mildly erythematous patch of the extensor surface of the elbows bilaterally without any flaking or scaling Neurological - Alert & oriented x3 Psychological - Appropriate affect PFSH Medical History (Updated 03/16/25 @ 16:07 by SUSAN Sorenson) Right thyroid nodule Osteoporosis Hyperlipemia GERD (gastroesophageal reflux disease) Kirstin's thyroiditis HTN (hypertension) Surgical History (Updated 03/11/25 @ 16:36 by Coleen Xie) Hx of colonoscopy (~06/26/23) Social History Patient Tobacco Use Status: Never used Tobacco Physical exam (Primary Care) Vital Signs: Last Vital Signs Temp 97.8 F 03/16/25 15:03 Pulse 90 03/16/25 15:03 Resp 16 03/16/25 15:03 BP 134/94 H 03/16/25 15:03 Pulse Ox 96 03/16/25 15:03 Oxygen Delivery Method Room Air 03/16/25 15:03 BMI result Body Mass Index 24.9 Tobacco/Smoking Status: Tobacco use Status Patient Tobacco Use Status Never used Tobacco 03/16/25 15:05 Coding Level of Care Code New Pt Level 4 (62428) Complex EM visit Add On G2211 Diagnoses Kirstin's thyroiditis E06.3 HTN (hypertension) I10 Hyperlipemia E78.5 Hair loss L65.9 Osteoporosis M81.0 Right thyroid nodule E04.1 Dermatitis, unspecified L30.9 Petechial rash R23.3 Assessment & Plan Assessment & Plan (1) Kirstin's thyroiditis: Code(s): E06.3 - Autoimmune thyroiditis Category: Medical Plan: TSH and free T4 along with TPO antibodies ordered. Referred to endocrinology (2) HTN (hypertension): Code(s): I10 - Essential (primary) hypertension Category: Medical Plan: Has not taken lisinopril today. Resume lisinopril 10 mg daily and check blood pressures at home. Contact the office with blood pressure readings in several days. Low sodium diet (3) Hyperlipemia: Code(s): E78.5 - Hyperlipidemia, unspecified Category: Medical Plan: Lipid panel ordered. ASCVD risk score to be calculated pending results of studies (4) Hair loss: Code(s): L65.9 - Nonscarring hair loss, unspecified Category: Medical Plan: Thyroid studies, CBC, iron panel, DHEA ordered (5) Osteoporosis: Code(s): M81.0 - Age-related osteoporosis without current pathological fracture Category: Medical Plan: Preferred for DEXA scan. We will also check vitamin-D level. Continue multivitamin, to be adjusted as indicated pending results. Consider initiating Fosamax pending results (6) Right thyroid nodule: Code(s): E04.1 - Nontoxic single thyroid nodule Category: Medical Plan: Largest 5.9 cm in diameter with associated compressive symptoms. Ultrasound of the thyroid ordered. Referred to endocrinology. TSH, free T4, TPO ordered (7) Dermatitis, unspecified: Code(s): L30.9 - Dermatitis, unspecified Category: Medical Plan: . Trial triamcinolone cream twice daily (8) Petechial rash: Code(s): R23.3 - Spontaneous ecchymoses Category: Medical Plan: Likely secondary aspirin use. Check platelet count. Reassurance offered Plan Follow-up in the office in 4 months. Labs to be completed following visit today. Orders: Orders Complete Blood Count Auto Diff Today E78.5 - Hyperlipidemia, unspecified Vitamin D 25-OH Total Today E78.5 - Hyperlipidemia, unspecified Free T4 (Free Thyroxine) Today E78.5 - Hyperlipidemia, unspecified Thyroid Peroxidase Antibodies Today E78.5 - Hyperlipidemia, unspecified Thyroid Stimulating Hormone Today E78.5 - Hyperlipidemia, unspecified US thyroid Today E04.9 - Nontoxic goiter, unspecified, E06.3 - Autoimmune thyroiditis MM tomosynthesis screening BI Today Z12.31 - Encounter for screening mammogram for malignant neoplasm of breast XR DEXA axial skeleton Today M81.0 - Age-related osteoporosis without current pathological fracture IRON PROFILE Today L65.9 - Nonscarring hair loss, unspecified Basic Metabolic Panel Today E78.5 - Hyperlipidemia, unspecified Lipid Panel Today E78.5 - Hyperlipidemia, unspecified Liver Panel Today E78.5 - Hyperlipidemia, unspecified DHEA Sulfate Today E06.3 - Autoimmune thyroiditis, L65.9 - Nonscarring hair loss, unspecified Medications: New lisinopril 10 mg PO DAILY 90 tabs 1RF triamcinolone acetonide 0.1% apply to bilateral elbows 1 appl topical BID PRN 30 grams 1RF rash
[2025-03-16 15:03] VITALS: BP 134/94; PULSE 90; RESP 16; TEMP 36.6; O2SAT 96; BMI 24.9
--- OUTSIDE RECORDS SUMMARY | 2025-03-16 15:22 | XMS_ITS | Patient Health Record ---
[facility] Address [address] [place] [address] Care Team Providers Care Research Chemical Engineer Name Role Phone Bulmaro Toure MD Primary Care Provider Unavaila Chong Dukes Unavailable [phone] Reason For Referral No Information Medications Medication SIG (Take, Route, Frequency, Duration) Notes Start Date End Date Status Lisinopril Active Topamax Active Tenormin Active Limbitrol Active Problems Problem Type SNOMED Code ICD Code Onset Dates Problem Status W/U Status Risk Notes Problem Achilles bursitis (986680876) Achilles Tendonitis Bursitis (726.71) Active confirmed Problem Calcaneal spur (98756282) Calcaneal spur (726.73) Active confirmed Problem Plantar fasciitis (714847285) Plantar Fasciitis (728.71) Active confirmed Problem Tibialis tendinitis (97145286) Posterior Tibial Tendonitis (726.72) Active confirmed Plan Of Treatment No Information Insurance Providers Payer Name Payer Address Payer Phone Subscriber Number Group Number Insured Name Patient Relationship to Insured Coverage Start Date Coverage End Date [employer] ([employer]) [address] [place] [id number] [phone] [id number] Ashley Forte Self - patient is the insured Medical (General) History Medical History History ICD Code Headaches Migraines Chicken pox Measles Thyroid disorder Hypertension
--- OUTSIDE RECORDS SUMMARY | 2025-03-16 15:22 | XMS_ITS | Patient Health Record ---
Author Organization [facility] Address [address] [place] [address] Care Team Providers Care Fiction Writer Name Role Phone TANO MENDOZA Primary Care Provider Flo Ron Jr Unavailable Allergies No Known Allergies Reason For Referral No Information Medications Medication SIG (Take, Route, Frequency, Duration) Notes Start Date End Date Status Atorvastatin Calcium 10 MG 1 tablet Oral ly Once a day Active Butalbital-Acetaminophen 50-325 MG 1 tablet as needed Orally every 4 hrs Active Lisinopril 10 MG 1 tablet Orally Once a day Active Multi Adult Gummies - as directed Orally Active busPIRone HCl 10 MG 1 tablet Orally Twic e a day Active MiraLax (colon prep) 17 GM/SCOOP mixed with Gatorade or Crystal Light Orally begin at 5:00 p.m. the day before the procedure for 1 day 05/28/2023 Active chlordiazePOXIDE-Clidinium 5-2.5 MG 1 capsule before meals Orally Three times daily for 30 days 03/11/2025 Active Omeprazole 20 MG 1 capsule 1/2 to 1 h our before morning meal Orally Once a day Active Aspirin 81 81 MG 1 tablet Orally Once a day Active Topiramate 25 MG 1 tablet at bedtime Orally Twice a day Active Atenolol 25 MG 1 tablet Orally Once a day Active Amitriptyline HCl 50 MG 1 tablet at bedt wang Orally Once a day Active SUMAtriptan Succinate 50 MG as directed Subcutaneous Once a day Active Immunizations Vaccine Route Administration Date Status Comme nts Influenza Unknown 05/30/2022 Administered Influenza Unknown 03/11/2025 Refused Social History Alcohol Screen Question Answer Notes Did you have a drink containing alcohol in the p ast year? No Points 0 Interpretation Negative Problems Problem Type SNOMED Code ICD Code Onset Dates Problem Status W/U Status Risk Notes Problem [id number] Colon cancer screening (Z12.11) Active confirmed Problem Gastroesophageal reflux disease (705077500) GERD (gastroesophag eal reflux disease) (K21.9) Active confirmed Problem 65227006 Irritable bowel syndrome, unspecified type (K58.9) Active confirmed Vital Signs Temperature 98.0 degrees Fahrenheit 03/11/2025 Blood pressure diastolic 01 mm Hg 03/11/2025 Height 62 in 03/11/2025 Blood pressure systolic 001 mm Hg 03/11/2025 Weight 134.2 lbs 03/11/2025 BMI 24.54 kg/m2 03/11/2025 Encounters Encounter Location Date Provider Diagnosis [facility] [address] [place] [address] 03/11/2025 Flo Rolon Jr Irritable bowel syndrome, unspecified type K58.9 ; Colon cancer screening Z12.11 and GERD (gastroesophageal reflux disease) K21.9 [facility] [address] [place] [address] 03/09/2025 Flo Rolon Jr Assessments Encounter Date Diagnosis (ICD Code) Assessment Notes Treatment Notes Treatment Clinical Notes Section Notes 03/11/2025 Colon cancer screening (ICD-10 - Z12.11) We discussed irritable bowel syndrome today. We discussed diet, lifestyle modifications, and weight management also for IBS and reflux. We recommended a trial of Librax which has helped her in the past. She can also use Imodium prior to going out. She will start taking this and let us know how she is doing in 1 month. Follow-up will be in 1 year. She is up-to-date on colorectal cancer screening. 03/11/2025 Irritable bowel syndrome, unspecified type (ICD-10 - K58.9) We discussed irritable bowel syndrome today. We discussed diet, lifestyle modifications, and weight management also for IBS and reflux. We recommended a trial of Librax which has helped her in the past. She can also use Imodium prior to going out. She will start taking this and let us know how she is doing in 1 month. Follow-up will be in 1 year. She is up-to-date on colorectal cancer screening. 03/11/2025 GERD (gastroesophagea l reflux disease) (ICD-10 - K21.9) We discussed irritable bowel syndrome today. We discussed diet, lifestyle modifications, and weight management also for IBS and reflux. We recommended a trial of Librax which has helped her in the past. She can also use Imodium prior to going out. She will start taking this and let us know how she is doing in 1 month. Follow-up will be in 1 year. She is up-to-date on colorectal cancer screening. Plan Of Treatment Future Test Test Name Order Date COLONOSCOPY 09/23/2012 COLONOSCOPY 05/28/2023 Next Appt Details Provider Name:Flo richter , 03/15/2026 09:20:00 AM, [address] [place] [address], [address], [place], [address], Insurance Providers Payer Name Payer Address Payer Phone Subscriber Number Group Number Insured Name Patient Relationship to Insured Coverage Start Date Coverage End Date [employer] ([employer]) [address] [place] [address] [id number] TIARA MATHEW Self - patient is the insured Medical (General) History Medical History History ICD Code hypertension Kirstin's thyroiditis Colonoscopy 07/02, normal but limited in certain areas, 5-year follow-up migraines Anxiety Surgical History Surgery Date(Month/Year)
== END 2025-03-16 15:26 | disposition home or self-care (01) ==
LOC: HO.HMCHD 14:53
PROVIDERS: PCP Physician Assistant; Visit Provider Physician Assistant
DX: E06.3 Autoimmune thyroiditis (principal); I10 Essential (primary) hypertension; E78.5 Hyperlipidemia, unspecified; L65.9 Nonscarring hair loss, unspecified; M81.0 Age-related osteoporosis without current pathological fracture; E04.1 Nontoxic single thyroid nodule; L30.9 Dermatitis, unspecified; R23.3 Spontaneous ecchymoses

== ENCOUNTER 2025-03-16 14:52 | Outpatient (REF) | payer OTHER, SELFPAY ==
[2025-03-16 15:47] LABS: MANUAL DIFF FLAG NO
[2025-03-16 17:24] LABS: Hematocrit 40.8 % (37.0-47.0); Hemoglobin 13.3 g/dl (12.0-16.0); Imm Gran Abs Auto 0.01 X10*3/uL (0.00-0.03); Imm Gran Pct Auto 0.1 % (0.0-0.4); Lymphocytes Absolute Auto 2.2 X10*3/uL (1.2-4.9); Mean Corpuscular HGB Conc 32.6 g/dl (31.0-35.0); Mean Corpuscular Hemoglobin 29.4 pg (27.0-33.0); Mean Corpuscular Volume 90.3 fL (80.0-98.0); NRBC Abs Auto 0.000 X10*3/uL (0.0-0.012); NRBC Pct Auto 0.0 /100WBC (0.0-0.2); Platelet Count 364 X10*3/uL (160-400); Red Blood Count 4.52 X10*6/uL (4.20-5.50); White Blood Count 8.1 X10*3/uL (4.8-10.8)
[2025-03-16 17:58] LABS: Alanine Aminotransferase 21 U/L (0-31); Albumin Level 4.4 g/dL (3.5-5.0); Alkaline Phosphatase 83 U/L (39-117); Anion Gap 9 (12-20); Aspartate Amino Transferase 28 U/L (5-31); Blood Urea Nitrogen 19 mg/dL (9-16); Calcium 9.2 mg/dL (8.4-10.2); Carbon Dioxide 28 mmol/L (22-29); Chloride 108 mmol/L (96-108); Cholesterol 269 mg/dL (<200); Estimated Glomerular Filt Rate 48; HDL Cholesterol 69 mg/dL (>40); Iron 65 mcg/dL (30-160); Percent Iron Saturation 30 % (15-50); Potassium 4.2 mmol/L (3.3-5.1); Sodium 141 mmol/L (135-145); Total Iron Binding Capacity 216 mcg/dL (228-428); Total Protein 7.7 g/dL (6.5-8.0); Triglycerides 152 mg/dL (<150); Unsaturated Iron Binding 151 ug/dL
[2025-03-16 18:08] LABS: Free T4 (Free Thyroxine) 0.95 ng/dL (0.71-1.85); Thyroid Stimulating Hormone 2.48 uIU/mL (0.32-4.0)
== END 2025-03-16 14:53 | disposition home or self-care (01) ==
LOC: HO.LAB 14:52
PROVIDERS: PCP Physician Assistant; Visit Provider Physician Assistant
DX: E06.3 Autoimmune thyroiditis (principal); E78.5 Hyperlipidemia, unspecified; L65.9 Nonscarring hair loss, unspecified; I10 Essential (primary) hypertension; G43.909 Migraine, unspecified, not intractable, without status migrainosus; K21.9 Gastro-esophageal reflux disease without esophagitis; M81.0 Age-related osteoporosis without current pathological fracture; L30.9 Dermatitis, unspecified; R23.3 Spontaneous ecchymoses; E04.9 Nontoxic goiter, unspecified
CPT/HCPCS: 36415; 80048; 80061; 80076; 82306; 82627; 83540; 84439; 84443; 85025; 86376

== ENCOUNTER 2025-04-10 11:19 | Outpatient (REF) | payer OTHER, SELFPAY ==
--- NOTE | ~2025-04-10 | US_ITS ---
EXAMINATION: US THYROID CLINICAL INFORMATION: Kirstin's disease. Hypothyroidism. Goiter. COMPARISON: None available. TECHNIQUE: Linear transducer grayscale and color Doppler examination with attention to the region of the thyroid. FINDINGS: SIZE: Measurements of the thyroid lobes and nodules are given in sagittal, anteroposterior and transverse dimensions respectively. Right Thyroid Lobe: 5.8 x 2.1 x 2.4 cm, volume 15.3 mL. Parenchyma: The gland echotexture is heterogeneous. Thyroid vascularity is increased. Left Thyroid Lobe: 6.0 x 1.7 x 2.0 cm, volume 10.7 mL. Parenchyma: The gland echotexture is heterogeneous. Thyroid vascularity is increased. Isthmus: 0.6 cm in maximum AP dimension. Estimated total number of nodules greater than or equal to 1 cm: 3. Camera Repairman nodules are described as follows: 1. Location: Midportion, left thyroid lobe. Size: 1.5 x 0.8 x 1.5 cm, volume 0.83 mL. Nodule characteristics: Composition: Solid (2). Echogenicity: Isoechoic (1). Shape: Not taller than wide (0). Margins: Smooth (0). Echogenic Foci: None (0). ACR TI-RADS total points: 3 ACR TI-RADS category: 3 2. Location: Upper pole, right thyroid lobe.. Size: 1.9 x 1.0 x 1.9 cm, volume 1.82 mL. Nodule characteristics: Composition: Solid (2). Echogenicity: Hypoechoic (2). Shape: Not taller than wide (0). Margins: Smooth (0). Echogenic Foci: None (0). ACR TI-RADS total points: 4 ACR TI-RADS category: 4 3. Location: Midportion, right thyroid lobe. Size: 1.9 x 0.9 x 1.4 cm, volume 1.3 mL. Nodule characteristics: Composition: Solid (2). Echogenicity: Isoechoic (1). Shape: Not taller than wide (0). Margins: Smooth (0). Echogenic Foci: None (0). ACR TI-RADS total points: 3 ACR TI-RADS category: 3 US/US thyroid IMPRESSION: ACR TI-RADS category: 3 and 4 ACR TI-RADS RECOMMENDATION REFERENCE: Ultrasound-guided fine-needle aspiration, followup ultrasound, no further follow up. * TR1 (0 point) and TR2 (2 points): No FNA or follow up. * TR3 (3 points): FNA if more than or equal to 2.5 cm in maximum dimension, followup ultrasound in 1, 3 and 5 years if 1.5 to 2.4 cm in maximum dimension. * TR4 (4-6 points): FNA if more than or equal to 1.5 cm in maximum dimension, followup ultrasound in 1, 2, 3 and 5 years if 1 to 1.4 cm in maximum dimension. * TR5 (more than or equal to 7 points): FNA if more than or equal to 1 cm in maximum dimension, followup ultrasound every year for 5 years if 0.5 to 0.9 cm in maximum dimension. * TR3, TR4 or TR5 nodules that are below the size threshold for followup receive no follow up. Electronically signed by: Jaylen Ying MD 04/10/2025 12:14 PM EDT
--- OUTSIDE RECORDS SUMMARY | 2025-04-10 11:23 | XMS_ITS | Patient Health Record ---
[facility] Address [address] [place] [address] Care Team Providers Care Salesperson Recreational Vehicles Name Role Phone Bulmaro Toure MD Primary Care Provider Unavaila Chong Dukes Unavailable [phone] Reason For Referral No Information Medications Medication SIG (Take, Route, Frequency, Duration) Notes Start Date End Date Status Lisinopril Active Topamax Active Tenormin Active Limbitrol Active Problems Problem Type SNOMED Code ICD Code Onset Dates Problem Status W/U Status Risk Notes Problem Achilles bursitis (531077338) Achilles Tendonitis Bursitis (726.71) Active confirmed Problem Calcaneal spur (27099310) Calcaneal spur (726.73) Active confirmed Problem Plantar fasciitis (999366544) Plantar Fasciitis (728.71) Active confirmed Problem Tibialis tendinitis (42333025) Posterior Tibial Tendonitis (726.72) Active confirmed Plan Of Treatment No Information Insurance Providers Payer Name Payer Address Payer Phone Subscriber Number Group Number Insured Name Patient Relationship to Insured Coverage Start Date Coverage End Date [employer] ([employer]) [address] [place] [address] [phone] [id number] Ashley Forte Self - patient is the insured Medical (General) History Medical History History ICD Code Headaches Migraines Chicken pox Measles Thyroid disorder Hypertension
== END 2025-04-10 11:20 | disposition home or self-care (01) ==
LOC: HO.HMGCX 11:19
PROVIDERS: PCP Physician Assistant; Visit Provider Physician Assistant
DX: E04.9 Nontoxic goiter, unspecified (principal); E06.3 Autoimmune thyroiditis
CPT/HCPCS: 76536

== ENCOUNTER → 2025-04-10 11:20 | Outpatient (BNV) | payer OTHER, SELFPAY | PROVIDERS: PCP Physician Assistant; Visit Provider Radiology Diagnostic Radiology | DX: E04.2 Nontoxic multinodular goiter (principal) | CPT/HCPCS: 76536 ==

== ENCOUNTER 2025-04-22 14:48 | Outpatient (AMB) | payer OTHER, SELFPAY ==
--- OUTSIDE RECORDS SUMMARY | 2025-04-22 14:54 | XMS_ITS | Patient Health Record ---
Author Organization [facility] Address [address] [place] [address] Care Team Providers Care Cloth Mercerizer Back Tender Name Role Phone Bulmaro Toure MD Primary Care Provider Unavaila Chong Dukes Unavailable [phone] Reason For Referral No Information Medications Medication SIG (Take, Route, Frequency, Duration) Notes Start Date End Date Status Lisinopril Active Topamax Active Tenormin Active Limbitrol Active Problems Problem Type SNOMED Code ICD Code Onset Dates Problem Status W/U Status Risk Notes Problem Achilles bursitis (098040852) Achilles Tendonitis Bursitis (726.71) Active confirmed Problem Calcaneal spur (92115797) Calcaneal spur (726.73) Active confirmed Problem Plantar fasciitis (428737435) Plantar Fasciitis (728.71) Active confirmed Problem Tibialis tendinitis (16318722) Posterior Tibial Tendonitis (726.72) Active confirmed Plan Of Treatment No Information Insurance Providers Payer Name Payer Address Payer Phone Subscriber Number Group Number Insured Name Patient Relationship to Insured Coverage Start Date Coverage End Date [employer] ([employer]) [address] [place] [id number] Ashley Forte Self - patient is the insured Medical (General) History Medical History History ICD Code Headaches Migraines Chicken pox Measles Thyroid disorder Hypertension
--- OUTSIDE RECORDS SUMMARY | 2025-04-22 14:55 | XMS_ITS | Patient Health Record ---
Author Organization [facility] Address [address] [place] [address] Care Team Providers Care Brush And Broom Clipper Name Role Phone TANO MENDOZA Primary Care [...] Problem Status W/U Status Risk Notes Problem 784140255 Colon cancer screening (Z12.11) Active confirmed Problem Gastroesophageal reflux disease (238378449) GERD (gastroesophag eal reflux disease) (K21.9) Active confirmed Problem 86541632 Irritable bowel syndrome, unspecified type (K58.9) Active confirmed Vital Signs Temperature 98.0 degrees Fahrenheit 03/11/2025 Blood pressure diastolic 01 mm Hg 03/11/2025 Height 62 in 03/11/2025 Blood pressure systolic 001 mm Hg 03/11/2025 Weight 134.2 lbs 03/11/2025 BMI 24.54 kg/m2 03/11/2025 Encounters Encounter Location Date Provider Diagnosis [facility] [address] [place] [id number] 03/11/2025 Flo Rolon Jr Irritable bowel syndrome, unspecified type K58.9 ; Colon cancer screening Z12.11 and GERD (gastroesophageal reflux disease) K21.9 [facility] [address] [place] [id number] 03/09/2025 Flo Rolon Jr [facility] [address] [place] [id number] 03/18/2025 Flo Rolon Jr Assessments Encounter Date Diagnosis [...] Provider Name:Flo richter , 03/15/2026 09:20:00 AM, [address] [place] [address], [address], [place], [address], Insurance Providers Payer Name Payer Address Payer Phone Subscriber Number Group Number Insured Name Patient Relationship to Insured Coverage Start Date Coverage End Date [facility] [id number] [place] [id number] TIARA MATHEW Self - patient is the insured Medical (General) History Medical History History ICD Code hypertension Kirstin's thyroiditis Colonoscopy 07/02, normal but limited in certain areas, 5-year follow-up migraines Anxiety Surgical History Surgery Date(Month/Year)
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
--- NOTE | 2025-04-22 15:34 | A.OFFVIS_ITS ---
Intake Visit Reasons: seen 2019/ migranes Allergies No Known Allergies Allergy (Verified 03/16/25 14:56) Medication List - Last Reconciled 04/22/25 by Mina Santos MD amitriptyline 50 mg PO BEDTIME aspirin 81 mg PO DAILY atorvastatin (Lipitor) 20 mg PO BEDTIME buspirone 10 mg PO BID PRN chlordiazepoxide-clidinium 5-2.5 mg (Librax (with clidinium)) 1 cap PO TID lisinopril 10 mg PO DAILY multivitamin 1 tab PO DAILY omeprazole 20 mg PO DAILY PFSH Medical History (Updated 04/22/25 @ 15:27 by Mina Santos MD) Migraine IBS (irritable bowel syndrome) Right thyroid nodule Osteoporosis Hyperlipemia GERD (gastroesophageal reflux disease) Kirstin's thyroiditis HTN (hypertension) Surgical History (Updated 03/11/25 @ 16:36 by Coleen Xie) Hx of colonoscopy (~06/26/23) Social History Patient Tobacco Use Status: Never used Tobacco Assessment & Plan Assessment & Plan (1) Migraine: Code(s): G43.909 - Migraine, unspecified, not intractable, without status migrainosus Category: Medical (2) HTN (hypertension): Code(s): I10 - Essential (primary) hypertension Category: Medical Plan Restart migraine prophylaxis with Topiramate 25mg bid Medications: New sumatriptan succinate do not exceed 2 doses per 24 hrs 100 mg PO Q4H PRN 9 tabs 5RF Migraine He adache 30 days MDD 200mg /24 hrs topiramate 25 mg PO BID 60 tabs 6RF Coding Level of Care Code New Pt Level 5 (42796) Diagnoses Migraine G43.909 HTN (hypertension) I10
== END 2025-04-22 15:34 | disposition home or self-care (01) ==
LOC: HO.HSM 14:49
PROVIDERS: PCP Physician Assistant; Referring Provider Internal Medicine; Visit Provider Psychiatry & Neurology Neurology
DX: G43.909 Migraine, unspecified, not intractable, without status migrainosus (principal); I10 Essential (primary) hypertension
CPT/HCPCS: 99204

== ENCOUNTER 2025-04-30 11:57 | Outpatient (AMB) | payer OTHER, SELFPAY ==
[2025-04-30 12:01] VITALS: BP 102/68; PULSE 83; TEMP 36.7; O2SAT 95; BMI 24.7
--- NOTE | 2025-04-30 12:01 | AM.OFFWIN_ITS ---
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 90/73 Patient Tobacco Use Status: Never used Tobacco Allergies No Known Allergies Allergy (Verified 04/30/25 12:01) Do you need a note to return to daycare/school/sports/work: Yes HPI HPI Comments History of Present Illness Details History of Present Illness - The patient is a 65-year-old female pr esenting with dizziness and lightheade dness. - She reports recent onset of dizziness and lightheadedness, accompanied by fatigue over the past five days. - Denies any shortness of breath, URI sy mptoms, urinary symptoms. - Her blood pressure has been lower than usual, with a recent measurement of 100/70 mmHg. - She has a history of hypertension and is prescribed lisinopril 10 mg, which she did not take today or yesterday. - No recent dietary changes, no weight l oss but she has started walking as exercise. - Recent lab results indicate a mildly l ow total iron binding capacity, potentially explaining her fatigue. - Her cholesterol is elevated, though he r TSH levels are normal. Physical Exam General: Cooperative, healthy appearing, comfortable, no acute distress and well developed Orientation: Patient oriented x3 Limitations: No limitations Head: Normal to inspection Ears: Hearing grossly normal bilaterally Nose: Normal External nose present Face and sinus: Normal facial exam Eyes: Appearance normal, both eyes and all related structures Neck: Normal visual inspection and Yes full ROM Respiratory: Normal respiratory effort and able to speak in complete sentences. Skin: No rashes or lesions noted Neuro: Patient oriented x3 Extremities: Normal to inspection COUNT INCLUDES THE [facility] Medical History (Updated 04/30/25 @ 12:27 by Ayana Hudson PA-C) Migraine IBS (irritable bowel syndrome) Right thyroid nodule Osteoporosis Hyperlipemia GERD (gastroesophageal reflux disease) Kirstin's thyroiditis HTN (hypertension) Surgical History (Updated 03/11/25 @ 16:36 by Coleen Xie) Hx of colonoscopy (~10/17/23) Social History Patient Tobacco Use Status: Never used Tobacco Review of Systems Const All systems reviewed & are unremarkable except as noted in HPI and below Physical Exam Vital Signs: Last Vital Signs Temp 98.0 F 04/30/25 12:01 Pulse 83 04/30/25 12:01 BP 100/70 04/30/25 12:08 Pulse Ox 95 04/30/25 12:01 Oxygen Delivery Method Room Air 04/30/25 12:01 BMI result Body Mass Index 24.7 Assessment & Plan Assessment & Plan (1) Dizziness: Code(s): R42 - Dizziness and giddiness Plan: Plan - The patient should monitor her blood pressure twice daily and stop lisinopril if it remains low. - Perhaps the walking she has started is positively impacting her BP and she no longer requires BP medicaiton. - A urine analysis was ordered to rule out a UTI, pt could not provide a sample in the office so it was ordered for her at the lab. - She is advised to follow up with her PCP or nurse nagigator within 7 to 10 days for further evaluation of lisinopril need and fatigue. Messaged PCP. - Reviewed normal Vit D, iron labs and TSH with the patient. Patient was informed and verbally consented to the use of an ambient scribe for clinic note documentation during this visit. (2) Fatigue: Code(s): R53.83 - Other fatigue Qualifiers: Fatigue type: unspecified Qualified Code(s): R53.83 - Other fatigue Plan: as above Orders: Orders UA ClnCatch+Micro w/rflx Cult Today R42 - Dizziness and giddiness, R53.83 - Other fatigue Coding Level of Care Code Est Pt Level 4 (63958) Diagnoses Dizziness R42 Fatigue, unspecified type R53.83 Fatigue type: unspecified
[2025-04-30 12:08] VITALS: BP 100/70
== END 2025-04-30 13:33 | disposition home or self-care (01) ==
PROVIDERS: PCP Physician Assistant; Visit Provider Physician Assistant
DX: R42 Dizziness and giddiness (principal); R53.83 Other fatigue

== ENCOUNTER 2025-05-05 10:06 | Outpatient (AMB) | payer OTHER, SELFPAY ==
--- NOTE | 2025-05-05 10:09 | A.OFFPC_ITS ---
Vital Signs 05/05/25 10:16 Height 5 ft 2 in Weight 59.874 kg BMI 24.1 BP 108/82 Respiration 16 Pulse 78 Pulse Source Pulse Oximeter Temp 97.6 F Temp Source Temporal Artery Scan Pulse Oximetry (%) 95 Oxygen Delivery Method Room Air Intake Visit Reasons: BP issues/dizziness - Override per Danielle on 05/01 Tripe Scraper Required: No Accompanied by: Self / Same As Patient Allergies No Known Allergies Allergy (Verified 05/05/25 10:09) HPI HPI Comments History of Present Illness Details 65-year-old female with history of hyper tension, hyperlipidemia, Kirstin's, thyroid nodule, osteoporosis presents to the office today for evaluation. She reports that for the last week, she has been experiencing significant lightheadedness that has been constant. She has not syncopized. She states that she feels weakness in the upper and lower extremities bilaterally. Denies any arthralgias or myalgias. She is also experiencing extreme fatigue. Describes paresthesias in the hands bilaterally. There is also nausea but no vomiting. Also hot flashes. No vision changes, weight loss, swelling, fevers, chills, shortness of breath, chest pain, abdominal pain, dysuria, hematuria, cough. She does occasionally get migraines but they are not associated with these symptoms. Most recent migraine was last week. She has no known history of tick bites recently but did find a tick in her hair. She does report drinking plenty of water and denies any history of diabetes/hypoglycemia. Reports symptoms are constant and are not positional in nature. She does report decreased coordination and balance. Questions atorvastatin. Discontinued lisinopril. ROS: see hpi EXAM: Constitutional - Awake and Alert, No apparent distress Eyes - PERRL Cardiovascular - S1S2, RRR, No edema Respiratory - Normal lung expansion, Normal respiratory effort, No respiratory distress, CTA bilaterally Extremities - no calf tenderness bilaterally, no swelling MSK - normal inspection, normal ROM. No swelling Skin - Warm/Dry Neurological - Alert & oriented x3. CN II-XII in tact. Moving all extremities, equal strength, normal gait. Requires assistance when standing. Negative romberg Psychological - Appropriate affect [facility] Medical History (Updated 05/05/25 @ 10:57 by SUSAN Sorenson) Migraine IBS (irritable bowel syndrome) Right thyroid nodule Osteoporosis Hyperlipemia GERD (gastroesophageal reflux disease) Kirstin's thyroiditis HTN (hypertension) Surgical History (Updated 03/11/25 @ 16:36 by Coleen Xie) Hx of colonoscopy (~06/26/23) Social History Patient Tobacco Use Status: Never used Tobacco Physical exam (Primary Care) Vital Signs: Last Vital Signs Temp 97.6 F 05/05/25 10:16 Pulse 78 05/05/25 10:16 Resp 16 05/05/25 10:16 BP 108/82 05/05/25 10:16 Pulse Ox 95 05/05/25 10:16 Oxygen Delivery Method Room Air 05/05/25 10:16 BMI result Body Mass Index 24.1 Tobacco/Smoking Status: Tobacco use Status Patient Tobacco Use Status Never used Tobacco 05/05/25 10:10 Coding Level of Care Code Est Pt Level 4 (46308) Complex EM visit Add On G2211 Diagnoses Dizziness R42 HTN (hypertension) I10 Assessment & Plan Assessment & Plan (1) Dizziness: Code(s): R42 - Dizziness and giddiness Category: Medical Plan: w/ fatigue, paresthesia, weakness. Labs as below to evaluate for anemia, thyroid abn, lyte abn normality, kidney/liver dysfunction, tick borne illness, inflammatory/autoimmune markers. Not positional to suggest orthostatic hypotension though blood pressures have dropped despite dc'ing lisinopril. EKG without abn. COnsider MRI brain and holter monitor pending results of studies. Less likely atorvastatin given onset of symptoms and clinical history. (2) HTN (hypertension): Code(s): I10 - Essential (primary) hypertension Category: Medical Plan: COntinue off lisinopril Orders: Orders IRON PROFILE Today R20.2 - Paresthesia of skin, R42 - Dizziness and giddiness, R53.83 - Other fatigue FADI Reflex Titer and Pattern Today R20.2 - Paresthesia of skin, R42 - Dizziness and giddiness, R53.83 - Other fatigue Lyme IgG/IgM w/reflex to WB Today R20.2 - Paresthesia of skin, R42 - Dizziness and giddiness, R53.83 - Other fatigue Vitamin B12 Today R20.2 - Paresthesia of skin, R42 - Dizziness and giddiness, R53.83 - Other fatigue Basic Metabolic Panel Today R20.2 - Paresthesia of skin, R42 - Dizziness and giddiness, R53.83 - Other fatigue Complete Blood Count Auto Diff Today R20.2 - Paresthesia of skin, R42 - Dizziness and giddiness, R53.83 - Other fatigue Hemoglobin A1c Today R20.2 - Paresthesia of skin, R42 - Dizziness and giddiness, R53.83 - Other fatigue Liver Panel Today R20.2 - Paresthesia of skin, R42 - Dizziness and giddiness, R53.83 - Other fatigue TSH reflex Free T4 Today R20.2 - Paresthesia of skin, R42 - Dizziness and giddiness, R53.83 - Other fatigue Vitamin D 25-OH Total Today R20.2 - Paresthesia of skin, R42 - Dizziness and giddiness, R53.83 - Other fatigue Rheumatoid Factor Today R20.2 - Paresthesia of skin, R42 - Dizziness and giddiness, R53.83 - Other fatigue Erythrocyte Sedimentation Rate Today R20.2 - Paresthesia of skin, R42 - Dizziness and giddiness, R53.83 - Other fatigue C Reactive Protein Today R20.2 - Paresthesia of skin, R42 - Dizziness and giddiness, R53.83 - Other fatigue
[2025-05-05 10:16] VITALS: BP 108/82; PULSE 78; RESP 16; TEMP 36.4; O2SAT 95; BMI 24.1
--- OUTSIDE RECORDS SUMMARY | 2025-05-05 10:49 | XMS_ITS | Patient Health Record ---
Author Organization [facility] [place] [facility] Address [address] [place] [address] Care Team Providers Care Clinical Application Manager Name Role Phone TANO MENDOZA Primary Care Provider Flo Ron Jr Unavailable [phone] Allergies No Known Allergies Reason For Referral [...] Problem Status W/U Status Risk Notes Problem 279395237 Colon cancer screening (Z12.11) Active confirmed Problem GERD (gastroesophagea l reflux disease) (K21.9) Active confirmed Problem 32620045 Irritable bowel syndrome, unspecified type (K58.9) Active confirmed Vital Signs Temperature 98.0 degrees Fahrenheit 03/11/2025 Blood pressure diastolic 01 mm Hg 03/11/2025 Height 62 in 03/11/2025 Blood pressure systolic 001 mm Hg 03/11/2025 Weight 134.2 lbs 03/11/2025 BMI 24.54 kg/m2 03/11/2025 Encounters Encounter Location Date Provider Diagnosis [facility] [address] [place] [phone] 03/11/2025 Flo Rolon Jr Irritable bowel syndrome, unspecified type K58.9 ; Colon cancer screening Z12.11 and GERD (gastroesophageal reflux disease) K21.9 [facility] [address] [place] [phone] 03/09/2025 Flo Rolon Jr [facility] [address] [place] [phone] 03/18/2025 Flo Rolon Jr Assessments Encounter Date [...] 09/23/2012 COLONOSCOPY 05/28/2023 Next Appt Details Provider Name:Floanaly richter , 03/15/2026 09:20:00 AM, [address] [place] [address], [address], [place], [address], Insurance Providers Payer Name Payer Address Payer Phone Subscriber Number Group Number Insured Name Patient Relationship to Insured Coverage Start Date Coverage End Date [facility] [employer] ([employer]) [address] [place] [id number] TIARA MATHEW Self - patient is the insured Medical (General) History Medical History History ICD Code hypertension Kirstin's thyroiditis Colonoscopy 07/02, normal but limited in certain areas, 5-year follow-up migraines Anxiety Surgical History Surgery Date(Month/Year)
--- OUTSIDE RECORDS SUMMARY | 2025-05-05 10:49 | XMS_ITS | Patient Health Record ---
[facility] Address [address] [place] [address] Care Team Providers Care Contact Worker Lithography Name Role Phone Bulmaro Toure MD Primary Care Provider Unavaila Chong Dukes Unavailable [phone] Reason For Referral No Information Medications Medication SIG (Take, Route, Frequency, Duration) Notes Start Date End Date Status Lisinopril Active Topamax Active Tenormin Active Limbitrol Active Problems Problem Type SNOMED Code ICD Code Onset Dates Problem Status W/U Status Risk Notes Problem Achilles bursitis (374584233) Achilles Tendonitis Bursitis (726.71) Active confirmed Problem Calcaneal spur (52449082) Calcaneal spur (726.73) Active confirmed Problem Plantar fasciitis (818016518) Plantar Fasciitis (728.71) Active confirmed Problem Tibialis tendinitis (51272870) Posterior Tibial Tendonitis (726.72) Active confirmed Plan Of Treatment No Information Insurance Providers Payer Name Payer Address Payer Phone Subscriber Number Group Number Insured Name Patient Relationship to Insured Coverage Start Date Coverage End Date [employer] ([employer]) [address] [place] [id number] Ashley Forte Self - patient is the insured Medical (General) History Medical History History ICD Code Headaches Migraines Chicken pox Measles Thyroid disorder Hypertension
== END 2025-05-05 11:00 | disposition home or self-care (01) ==
LOC: HO.HMCHD 10:06
PROVIDERS: PCP Physician Assistant; Visit Provider Physician Assistant
DX: R42 Dizziness and giddiness (principal); I10 Essential (primary) hypertension

== ENCOUNTER 2025-05-05 11:04 | Outpatient (REF) | payer OTHER, SELFPAY ==
[2025-05-05 13:07] LABS: MANUAL DIFF FLAG NO
[2025-05-05 13:23] LABS: Hematocrit 36.8 % (37.0-47.0); Hemoglobin 12.4 g/dl (12.0-16.0); Imm Gran Abs Auto 0.01 X10*3/uL (0.00-0.03); Imm Gran Pct Auto 0.2 % (0.0-0.4); Lymphocytes Absolute Auto 2.2 X10*3/uL (1.2-4.9); Mean Corpuscular HGB Conc 33.7 g/dl (31.0-35.0); Mean Corpuscular Hemoglobin 30.0 pg (27.0-33.0); Mean Corpuscular Volume 88.9 fL (80.0-98.0); NRBC Abs Auto 0.000 X10*3/uL (0.0-0.012); NRBC Pct Auto 0.0 /100WBC (0.0-0.2); Platelet Count 341 X10*3/uL (160-400); Red Blood Count 4.14 X10*6/uL (4.20-5.50); White Blood Count 6.2 X10*3/uL (4.8-10.8)
[2025-05-05 13:47] LABS: Appearance Urine Clear; Glucose Urine UA Negative (Negative); PH 5.5 (5.0-9.0); Specific Gravity - Urine 1.015 (1.005-1.025)
[2025-05-05 13:48] LABS: Alanine Aminotransferase 14 U/L (0-31); Albumin Level 4.2 g/dL (3.5-5.0); Alkaline Phosphatase 81 U/L (39-117); Anion Gap 12 (12-20); Aspartate Amino Transferase 25 U/L (5-31); Blood Urea Nitrogen 12 mg/dL (9-16); Calcium 9.2 mg/dL (8.4-10.2); Carbon Dioxide 27 mmol/L (22-29); Chloride 107 mmol/L (96-108); Estimated Glomerular Filt Rate 49; Iron 61 mcg/dL (30-160); Percent Iron Saturation 30 % (15-50); Potassium 4.0 mmol/L (3.3-5.1); Sodium 142 mmol/L (135-145); Total Iron Binding Capacity 202 mcg/dL (228-428); Total Protein 7.1 g/dL (6.5-8.0); Unsaturated Iron Binding 141 ug/dL
[2025-05-05 13:54] LABS: Hemoglobin A1C 132.5872 umol/L; Total Hemoglobin (HGBA1C) 3326.8380 umol/L
[2025-05-05 14:04] LABS: Vitamin B12 1419 pg/mL (200-900)
[2025-05-06 08:48] LABS: Lyme Abs Screen <0.90 index
[2025-05-13 09:08] LABS: Anti Nuclear Antibody Pattern Nuclear, Speckled; Anti Nuclear Antibody Screen POSITIVE (NEGATIVE); Anti Nuclear Antibody Titer 1:80 titer
== END 2025-05-05 11:05 | disposition home or self-care (01) ==
LOC: HO.10HDL 11:04
PROVIDERS: Physician Assistant; Visit Provider Physician Assistant
DX: R42 Dizziness and giddiness (principal); R53.83 Other fatigue; R20.2 Paresthesia of skin; Z13.0 Encounter for screening for diseases of the blood and blood-forming organs and certain disorders involving the immune mechanism; Z13.1 Encounter for screening for diabetes mellitus
CPT/HCPCS: 36415; 80048; 80076; 81001; 82306; 82607; 83036; 83540; 84443; 85025; 85652; 86038; 86039; 86140; 86431; 86617; 86618

== ENCOUNTER 2025-05-06 10:59 | Outpatient (REF) | payer OTHER, SELFPAY ==
--- OUTSIDE RECORDS SUMMARY | 2025-05-06 11:56 | XMS_ITS | Patient Health Record ---
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 Name Role Phone TANO MENDOZA Primary Care [...] Problem Status W/U Status Risk Notes Problem 684090607 Colon cancer screening (Z12.11) Active confirmed Problem GERD (gastroesophagea l reflux disease) (K21.9) Active confirmed Problem 02947208 Irritable bowel syndrome, unspecified type (K58.9) Active confirmed Vital Signs Temperature 98.0 degrees Fahrenheit 03/11/2025 Blood pressure diastolic 01 mm Hg 03/11/2025 Height 62 in 03/11/2025 Blood pressure systolic 001 mm Hg 03/11/2025 Weight 134.2 lbs 03/11/2025 BMI 24.54 kg/m2 03/11/2025 Encounters Encounter Location Date Provider Diagnosis [facility] [address] [place] [phone] 03/11/2025 Flo Rolon Jr Irritable bowel syndrome, unspecified type K58.9 ; Colon cancer screening Z12.11 and GERD (gastroesophageal reflux disease) K21.9 [facility] [address] [place] [phone] 03/09/2025 Flo Rolon Jr [facility] [address] [place] [phone] 03/18/2025 Flo Rolon Jr Assessments Encounter Date [...] Provider Name:Floanaly richter , 03/15/2026 09:20:00 AM, [address] [place] [address], [address], [place], [address], Insurance Providers Payer Name Payer Address Payer Phone Subscriber Number Group Number Insured Name Patient Relationship to Insured Coverage Start Date Coverage End Date [facility] ([employer]) [address] [place] [id number] [phone] [id number] TIARA MATHEW Self - patient is the insured Medical (General) History Medical History History ICD Code hypertension Kirstin's thyroiditis Colonoscopy 07/02, normal but limited in certain areas, 5-year follow-up migraines Anxiety Surgical History Surgery Date(Month/Year)
--- OUTSIDE RECORDS SUMMARY | 2025-05-06 11:56 | XMS_ITS | Patient Health Record ---
Author [facility] Address [address] [place] [address] Care Team Providers Care Service Or Work Dispatcher Name Role Phone Bulmaro Toure MD Primary Care Provider Unavaila Chong Dukes Unavailable [phone] Reason For Referral No Information Medications Medication SIG (Take, Route, Frequency, Duration) Notes Start Date End Date Status Lisinopril Active Topamax Active Tenormin Active Limbitrol Active Problems Problem Type SNOMED Code ICD Code Onset Dates Problem Status W/U Status Risk Notes Problem Achilles bursitis (467388866) Achilles Tendonitis Bursitis (726.71) Active confirmed Problem Calcaneal spur (42577834) Calcaneal spur (726.73) Active confirmed Problem Plantar fasciitis (167503748) Plantar Fasciitis (728.71) Active confirmed Problem Tibialis tendinitis (42870669) Posterior Tibial Tendonitis (726.72) Active confirmed Plan Of Treatment No Information Insurance Providers Payer Name Payer Address Payer Phone Subscriber Number Group Number Insured Name Patient Relationship to Insured Coverage Start Date Coverage End Date [employer] ([employer]) [address] [place] [id number] Ashley Forte Self - patient is the insured Medical (General) History Medical History History ICD Code Headaches Migraines Chicken pox Measles Thyroid disorder Hypertension
== END 2025-05-06 11:00 | disposition home or self-care (01) ==
LOC: HO.MAMMO 10:59
PROVIDERS: PCP Physician Assistant; Visit Provider Physician Assistant
DX: Z12.31 Encounter for screening mammogram for malignant neoplasm of breast (principal)
CPT/HCPCS: 77063; 77067

== ENCOUNTER → 2025-05-06 11:15 | Outpatient (BNV) | payer OTHER, SELFPAY | PROVIDERS: PCP Physician Assistant; Visit Provider Radiology Body Imaging | DX: Z12.31 Encounter for screening mammogram for malignant neoplasm of breast (principal) | CPT/HCPCS: 77063; 77067 ==

== ENCOUNTER 2025-05-22 10:50 | Outpatient (AMB) | payer OTHER, SELFPAY ==
[2025-05-22 10:56] VITALS: BP 134/90; PULSE 76; O2SAT 96; BMI 24.2
--- NOTE | 2025-05-22 10:56 | A.OFFVIS_ITS ---
Vital Signs 3 05/22/25 10:56 Height 5 ft 2 in Weight 132 lb 4.438 oz BMI 24.2 BP 134/90 H Blood Pressure Location Rt brachial Position Sitting Pulse 76 Pulse Source Pulse Oximeter Pulse Oximetry (%) 96 Oxygen Delivery Method Room Air Intake Visit Reasons: Nontoxic single thyroid nodule Intake Note: NEW Patient presents today to establish care for Nontoxic single thyroid nodule: No acute complaints reported at this time L Employment Coordinator Required: No Accompanied by: Self / Same As Patient Allergies No Known Allergies Allergy (Verified 05/05/25 10:09) HPI Comments Details: 65-year-old female with history of hypertension, hyperlipidemia, Kirstin's, thyroid nodule, osteoporosis, she is referred to Endocrinology for evaluation of nontoxic thyroid nodule. Of note she had not required treatment for Kirstin's thus far. For review of consult notes from [facility] dating 03/25/2009, she had a LEFT UPPER THYROID NODULE FNA negative for malignant cells, consistent with Kirstin's thyroiditis. Patient now reports progressive voice loss occurring over the past 1-2 years, but has exacerbated in the last few months. She reports associated fatigue, feeling always call, experiencing increased hair loss and brittle nails, but she denies weight gain, feeling slow or having swelling in the legs. She also denies compressive symptoms including dysphagia, odynophagia or cough when laying down. She does endorse having acid reflux for which she takes p.r.n. omeprazole. She also endorses hot flashes. 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 She has a family history of Two sisters on thyroid medication status post thyroidectomy, but no thyroid cancer. Physical exam General: Alert, well-nourished, no acute distress. Neck: Supple, irregular thyroid, enlarged, palpable nodule on the right thyroid no painful. Cardiac:Regular rate and rhythm, no murmurs. no edema. Lungs: Clear to auscultation bilaterally. Abdomen: Soft, non-tender. Extremities: No edema Neuro: Alert, oriented. Labs THYROID ULTRASOUND 04/10/2025 FINDINGS: SIZE: Measurements of the thyroid lobes and nodules are given in sagittal, anteroposterior and transverse dimensions respectively. Right Thyroid Lobe: 5.8 x 2.1 x 2.4 cm, volume 15.3 mL. Parenchyma: The gland echotexture is heterogeneous. Thyroid vascularity is increased. Left Thyroid Lobe: 6.0 x 1.7 x 2.0 cm, volume 10.7 mL. Parenchyma: The gland echotexture is heterogeneous. Thyroid vascularity is increased. Isthmus: 0.6 cm in maximum AP dimension. Estimated total number of nodules greater than or equal to 1 cm: 3. Certified Medical Transcriptionist nodules are described as follows: 1. Location: Midportion, left thyroid lobe. Size: 1.5 x 0.8 x 1.5 cm, volume 0.83 mL. Nodule characteristics: Composition: Solid (2). Echogenicity: Isoechoic (1). Shape: Not taller than wide (0). Margins: Smooth (0). Echogenic Foci: None (0). ACR TI-RADS total points: 3 ACR TI-RADS category: 3 2. Location: Upper pole, right thyroid lobe.. Size: 1.9 x 1.0 x 1.9 cm, volume 1.82 mL. Nodule characteristics: Composition: Solid (2). Echogenicity: Hypoechoic (2). Shape: Not taller than wide (0). Margins: Smooth (0). Echogenic Foci: None (0). ACR TI-RADS total points: 4 ACR TI-RADS category: 4 3. Location: Midportion, right thyroid lobe. Size: 1.9 x 0.9 x 1.4 cm, volume 1.3 mL. Nodule characteristics: Composition: Solid (2). Echogenicity: Isoechoic (1). Shape: Not taller than wide (0). Margins: Smooth (0). Echogenic Foci: None (0). ACR TI-RADS total points: 3 ACR TI-RADS category: 3 Previous ultrasound for comparison from based a note dated from 06/28/2016 [facility] Medical History Migraine IBS (irritable bowel syndrome) Right thyroid nodule Osteoporosis Hyperlipemia GERD (gastroesophageal reflux disease) Kirstin's thyroiditis HTN (hypertension) Surgical History Hx of colonoscopy (~06/26/23) Family History Father No problems noted. Mother No problems noted. Sister Thyroid disease Social History Alcohol intake: current Alcohol intake frequency: does not drink Patient Tobacco Use Status: Never used Tobacco Physical Exam Vital Signs: Last Vital Signs Pulse 76 05/22/25 10:56 BP 134/90 H 05/22/25 10:56 Pulse Ox 96 05/22/25 10:56 Oxygen Delivery Method Room Air 05/22/25 10:56 BMI result Body Mass Index 24.2 Assessment & Plan Assessment & Plan (1) Kirstin's thyroiditis: Code(s): E06.3 - Autoimmune thyroiditis Category: Medical (2) Goiter: Code(s): E04.9 - Nontoxic goiter, unspecified Category: Medical (3) Dysphonia: Code(s): R49.0 - Dysphonia Category: Medical Plan Assessment The patient has a right upper pole thyroid nodule that has increased in size to 1.92 cm which constitutes a 92% increase over 9 years, which increased the concerns for malignancy. Recent laboratory results confirm the patient is euthyroid. The patient reports voice loss and other symptoms; however, these are not definitively linked to the thyroid nodule or thyroid dysfunction at this time. Plan Arrange a fine-needle aspiration (FNA) biopsy of the right upper pole thyroid nodule within the next 3?6 months to assess for malignancy, given the documented increase in size. Provided detailed counseling regarding the clinical significance of the nodule?s growth, including the associated risk of malignancy and the importance of tissue diagnosis via FNA. We do not believe that her thyroid nodules are related to her dysphonia, especially as the patient does not have overt compressive symptoms. Refer the patient to an preparation plant supervisor (ENT) for a comprehensive evaluation of the vocal cords and further investigation into the etiology of the voice loss, to rule out non-thyroidal causes or possible vocal cord involvement. We discussed with the patient that a case that ENT evaluation does not bring any light on the reasons for her dysphonia and the symptom persists, we could consider discussing thyroidectomy. Orders: Referrals 2 Ear/Nose/Throat Referral R49.0 - Dysphonia Coding Level of Care Code New Pt Level 4 (49976) Diagnoses Kirstin's thyroiditis E06.3 Goiter E04.9 Dysphonia R49.0
--- OUTSIDE RECORDS SUMMARY | 2025-05-22 12:25 | XMS_ITS | Patient Health Record ---
Author Organization [facility] Address [address] [place] [address] Care Team Providers Care Principal Administrative Clerk Name Role Phone TANO MENDOZA Primary Care Provider Flo Ron Jr Unavailable [phone] Allergies No Known Allergies Reason For [...] Problem Status W/U Status Risk Notes Problem 963790560 Colon cancer screening (Z12.11) Active confirmed Problem Gastroesophageal reflux disease (682661652) GERD (gastroesophag eal reflux disease) (K21.9) Active confirmed Problem 85730086 Irritable bowel syndrome, unspecified type (K58.9) Active confirmed Vital Signs Temperature 98.0 degrees Fahrenheit 03/11/2025 Blood pressure diastolic 01 mm Hg 03/11/2025 Height 62 in 03/11/2025 Blood pressure systolic 001 mm Hg 03/11/2025 Weight 134.2 lbs 03/11/2025 BMI 24.54 kg/m2 03/11/2025 Encounters Encounter Location Date Provider Diagnosis [facility] [address] [place] [phone] 03/11/2025 Flo Rolon Jr Irritable bowel syndrome, unspecified type K58.9 ; Colon cancer screening Z12.11 and GERD (gastroesophageal reflux disease) K21.9 [facility] [address] [place] [phone] 03/09/2025 Flo Rolon Jr [facility] [address] [place] [phone] 03/18/2025 Flo Rolon Jr Assessments Encounter Date [...] Provider Name:Flo richter , 03/15/2026 09:20:00 AM, [address] [place] [address], [address], [place], [address], Insurance Providers Payer Name Payer Address Payer Phone Subscriber Number Group Number Insured Name Patient Relationship to Insured Coverage Start Date Coverage End Date [facility] ([employer]) [address] [place] [id number] [phone] [id number] TIARA MATHEW Self - patient is the insured Medical (General) History Medical History History ICD Code hypertension Kirstin's thyroiditis Colonoscopy 07/02, normal but limited in certain areas, 5-year follow-up migraines Anxiety Surgical History Surgery Date(Month/Year)
--- OUTSIDE RECORDS SUMMARY | 2025-05-22 12:25 | XMS_ITS | Patient Health Record ---
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 Role Phone Bulmaro Toure MD Primary Care Provider Unavaila Chong Dukes Unavailable [phone] Reason For Referral No Information Medications Medication SIG (Take, Route, Frequency, Duration) Notes Start Date End Date Status Lisinopril Active Topamax Active Tenormin Active Limbitrol Active Problems Problem Type SNOMED Code ICD Code Onset Dates Problem Status W/U Status Risk Notes Problem Achilles bursitis (863062642) Achilles Tendonitis Bursitis (726.71) Active confirmed Problem Calcaneal spur (11441739) Calcaneal spur (726.73) Active confirmed Problem Plantar fasciitis (513480550) Plantar Fasciitis (728.71) Active confirmed Problem Tibialis tendinitis (92077198) Posterior Tibial Tendonitis (726.72) Active confirmed Plan Of Treatment No Information Insurance Providers Payer Name Payer Address Payer Phone Subscriber Number Group Number Insured Name Patient Relationship to Insured Coverage Start Date Coverage End Date [employer] ([employer]) [address] [place] [id number] [phone] [id number] Ashley Forte Self - patient is the insured Medical (General) History Medical History History ICD Code Headaches Migraines Chicken pox Measles Thyroid disorder Hypertension
== END 2025-05-22 11:44 | disposition home or self-care (01) ==
LOC: HO.ENCR 10:50
PROVIDERS: PCP Physician Assistant; Visit Provider Student in an Organized Health Care Education/Training Program
DX: E06.3 Autoimmune thyroiditis (principal); E04.9 Nontoxic goiter, unspecified; R49.0 Dysphonia
CPT/HCPCS: 99203

== ENCOUNTER 2025-06-26 09:31 | Outpatient (REF) | payer OTHER, SELFPAY ==
--- OUTSIDE RECORDS SUMMARY | 2025-06-26 10:42 | XMS_ITS | Patient Health Record ---
Author Organization [facility] Address [address] [place] [address] Care Team Providers Care Bilingual Sales Consultant Name Role Phone Bulmaro Toure MD Primary Care Provider Unavaila Chong Dukes Unavailable [phone] Reason For Referral No Information Medications Medication SIG (Take, Route, Frequency, Duration) Notes Start Date End Date Status Lisinopril Active Topamax Active Tenormin Active Limbitrol Active Problems Problem Type SNOMED Code ICD Code Onset Dates Problem Status W/U Status Risk Notes Problem Achilles bursitis (304164827) Achilles Tendonitis Bursitis (726.71) Active confirmed Problem Calcaneal spur (24634942) Calcaneal spur (726.73) Active confirmed Problem Plantar fasciitis (929404485) Plantar Fasciitis (728.71) Active confirmed Problem Tibialis tendinitis (23618370) Posterior Tibial Tendonitis (726.72) Active confirmed Plan Of Treatment No Information Insurance Providers Payer Name Payer Address Payer Phone Subscriber Number Group Number Insured Name Patient Relationship to Insured Coverage Start Date Coverage End Date [employer] (Unicare) [address] [place] [id number] [phone] [id number] Ashley Forte Self - patient is the insured Medical (General) History Medical History History ICD Code Headaches Migraines Chicken pox Measles Thyroid disorder Hypertension
--- OUTSIDE RECORDS SUMMARY | 2025-06-26 10:43 | XMS_ITS ---
Author Name [facility] Organization Unknown Care Team Organization Name Specialty Phone Email Start Date End Miguel garcia [facility] 05/26/2025
--- OUTSIDE RECORDS SUMMARY | 2025-06-26 10:43 | XMS_ITS | Patient Health Record ---
Author Organization [facility] Address [address] [place] [address] Care Team Providers Care Group Activities Aide Name Role Phone TANO MENDOZA Primary Care [...] at 5:00 p.m. the day before the procedure; Duration: 1 day 05/28/2023 Active chlordiazePOXIDE-Clidinium 5-2.5 MG 1 capsule before meals Orally Three times daily; Duration: 30 days 03/11/2025 Active Omeprazole 20 MG [...] Problem Status W/U Status Risk Notes Problem Colon cancer screening (988200670) Colon cancer screening (Z12.11) Active confirmed Problem Gastroesophageal reflux disease (606416571) GERD (gastroesophag eal reflux disease) (K21.9) Active confirmed Problem Irritable bowel syndrome (70609044) Irritable bowel syndrome, unspecified type (K58.9) Active confirmed Vital Signs Temperature 98.0 degrees Fahrenheit 03/11/2025 Blood pressure diastolic 01 mm Hg 03/11/2025 Height 62 in 03/11/2025 Blood pressure systolic 001 mm Hg 03/11/2025 Weight 134.2 lbs 03/11/2025 BMI 24.54 kg/m2 03/11/2025 Encounters Encounter Location Date Provider Diagnosis [facility] [address] [place] [phone] 03/11/2025 Flo Rolon Jr Irritable bowel syndrome, unspecified type K58.9 ; Colon cancer screening Z12.11 and GERD (gastroesophageal reflux disease) K21.9 [facility] [address] [place] [phone] 03/09/2025 Flo Rolon Jr [facility] [address] [place] [phone] 03/18/2025 Flo Rolon Jr Assessments Encounter Date [...] Provider Name:Flo richter , 03/15/2026 09:20:00 AM, [address] [place] [address], [address], [place], [address], Insurance Providers Payer Name Payer Address Payer Phone Subscriber Number Group Number Insured Name Patient Relationship to Insured Coverage Start Date Coverage End Date [facility] Insurance (Categorical) [address] [place] [id number] TIARA MATHEW Self - patient is the insured Medical (General) History Medical History History ICD Code hypertension Kirstin's thyroiditis Colonoscopy 07/02, normal but limited in certain areas, 5-year follow-up migraines Anxiety Surgical History Surgery Date(Month/Year)
--- NOTE | 2025-06-26 16:03 | PM.PROC ---
Brief Operative Note Date of procedure: 06/26/25 Pre-op diagnosis: Right upper thyroid nodule Post-op diagnosis: same Procedure: INDICATION: 1.9 x 1.0 x 1.9 cm right upper pole-sided thyroid nodule; FNA performed to assess for malignancy DESCRIPTION OF PROCEDURE: The indications for FNA (to assess for malignancy) were reviewed with the patient in detail. Potential complications (e.g., bleeding, infection, damage to local structures, absence of clear diagnosis after FNA) were reviewed. Alternatives to FNA including conservative observation or surgery were described. The patient understood and agreed to proceed. This was documented by the signing of the written informed consent form. A time-out was performed to confirm the patient's identity and the site of planned FNA. The nodule of interest was identified using ultrasound (14 MHz linear array probe). The site of FNA was then draped in the usual fashion and carefully cleaned and prepared using alcohol swabs. The skin and subcutaneous tissue at the previously-identified site of needle insertion were anesthetized using 0.9 cc of 1% lidocaine solution.] [Local anesthesia was offered but declined by the patient. or The skin at the previously-identified site of needle insertion was sprayed with numbing spray. Under ultrasound guidance, 4 passes were performed using a 1.5-inch, 22-gauge needle, and sample was obtained via capillary action. The needle tip was clearly visualized to be within the nodule at the time of sampling for 4 of 4 passes The patient tolerated the procedure well. There were no immediate complications. A small adhesive bandage was applied, and the patient was advised to take acetaminophen (rather than NSAIDs) for any discomfort and to report any signs of inflammation/infection or marked swelling. IMPRESSION: Technically successful ultrasound-guided fine needle aspiration of right upper pole sided thyroid nodule. PLAN: The patient was advised that I will provide follow-up regarding the cytology result and any subsequent plans. Eboni Bunch MD Endocrinology Attending Anesthesia: local Surgeon: Eboni Bunch Estimated blood loss (mL): 0 IV fluids (mL): 0 Urine output (mL): 0 Pathology: other Condition: stable Disposition: same day
== END 2025-06-26 09:32 | disposition home or self-care (01) ==
LOC: HO.US 09:31
PROVIDERS: PCP Physician Assistant; Visit Provider Student in an Organized Health Care Education/Training Program
DX: E04.1 Nontoxic single thyroid nodule (principal)
CPT/HCPCS: 10005; 88173; 88305

== ENCOUNTER → 2025-06-26 09:31 | Outpatient (BNV) | payer OTHER, SELFPAY | PROVIDERS: PCP Physician Assistant; Visit Provider Student in an Organized Health Care Education/Training Program | DX: E04.1 Nontoxic single thyroid nodule (principal) | CPT/HCPCS: 10005 ==

== ENCOUNTER 2025-07-01 09:00 | Outpatient (REF) | payer OTHER, SELFPAY ==
--- NOTE | ~2025-07-01 | MM_ITS ---
EXAMINATION: DXA BONE DENSITY AXIAL HISTORY: M81.0 - Age-related osteoporosis without current pathological fracture TECHNIQUE: adaffix Dual energy absorptiometry (DEXA) of the lumbar spine, total left hip, and femoral neck was performed. COMPARISON: Comparison is made with the prior examination dated 01/25/2022. FINDINGS: The bone mineral density of the lumbar spine is 0.802 g/cm2, corresponding to a T-score of -3.2, and a Z-score of -1.5. This is indicative of osteoporosis. This represents a BMD change of -2.2% compared to the prior exam. This is not statistically significant. The bone mineral density of the left total hip is 0.731 g/cm2, corresponding to a T-score of -2.2, and a Z-score of -0.9. This is indicative of osteopenia. This represents a BMD change of -1.6% compared to the prior exam. This is not statistically significant. The bone mineral density of the left femoral neck is 0.730 g/cm2, corresponding to a T-score of -2.2, and a Z-score of -0.7. This is indicative of osteopenia. This represents a BMD change of -0.7% compared to the prior exam. MM/XR DEXA axial skeleton IMPRESSION: Based on bone mineral density, and according to World Health Organization (WHO) criteria, the diagnosis is consistent with osteoporosis. Statistically, 68% of repeat scans fall within 1 SD (+/- 0.010 g/cm2 for AP spine L1-L4) and 1 SD (+/- 0.012 g/cm2 for femur total) FRAX is a trademark of the [employer]'s [employer] Met[employer] Disease, a World Health Organization (WHO) Collaborating Center. Electronically signed by: Carlitos Hoang MD 07/01/2025 09:37 AM EDT
== END 2025-07-01 09:01 | disposition home or self-care (01) ==
LOC: HO.MAMMO 09:00
PROVIDERS: PCP Physician Assistant; Visit Provider Physician Assistant
DX: M81.0 Age-related osteoporosis without current pathological fracture (principal)
CPT/HCPCS: 77080

== ENCOUNTER → 2025-07-01 09:15 | Outpatient (BNV) | payer OTHER, SELFPAY | PROVIDERS: PCP Physician Assistant; Visit Provider Radiology Diagnostic Radiology | DX: E28.39 Other primary ovarian failure (principal) | CPT/HCPCS: 77080 ==

== ENCOUNTER 2025-07-10 13:11 | Outpatient (AMB) | payer OTHER, SELFPAY ==
--- NOTE | 2025-07-10 13:15 | MHC.OFFVIS ---
Vital Signs 07/10/25 13:29 Height 5 ft 2 in Weight 132 lb 4.438 oz BMI 24.2 BP 120/76 Blood Pressure Location Rt brachial Position Sitting Pulse 75 Pulse Source Pulse Oximeter Pulse Oximetry (%) 96 Oxygen Delivery Method Room Air Intake Visit Reasons: Biopsy f/u Intake Note: Patient presents here today for Thyroid Biopsy Results: Biopsy date 06/26/2025 Plate Printer Required: No Accompanied by: Self / Same As Patient Allergies No Known Allergies Allergy (Verified 07/10/25 13:32) HPI Comments Details: 65-year-old female with history of hypertension, hyperlipidemia, Kirstin's, thyroid nodule, osteoporosis, she is referred to Endocrinology for evaluation of nontoxic thyroid nodule. Of note she had not required treatment for Kirstin's thus far. For review of consult notes from [facility] dating 03/25/2009, she had a LEFT UPPER THYROID NODULE FNA negative for malignant cells, consistent with Kirstin's thyroiditis. Patient now reports progressive voice loss occurring over the past 1-2 years, but has exacerbated in the last few months. She reports associated fatigue, feeling always call, experiencing increased hair loss and brittle nails, but she denies weight gain, feeling slow or having swelling in the legs. She also denies compressive symptoms including dysphagia, odynophagia or cough when laying down. She does endorse having acid reflux for which she takes p.r.n. omeprazole. She also endorses hot flashes. 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 She has a family history of Two sisters on thyroid medication status post thyroidectomy, but no thyroid cancer. Physical exam General: Alert, well-nourished, no acute distress. Neck: Supple, irregular thyroid, enlarged, palpable nodule on the right thyroid no painful. Cardiac:Regular rate and rhythm, no murmurs. no edema. Lungs: Clear to auscultation bilaterally. Abdomen: Soft, non-tender. Extremities: No edema Neuro: Alert, oriented. Labs THYROID ULTRASOUND 04/10/2025 FINDINGS: SIZE: Measurements of the thyroid lobes and nodules are given in sagittal, anteroposterior and transverse dimensions respectively. Right Thyroid Lobe: 5.8 x 2.1 x 2.4 cm, volume 15.3 mL. Parenchyma: The gland echotexture is heterogeneous. Thyroid vascularity is increased. Left Thyroid Lobe: 6.0 x 1.7 x 2.0 cm, volume 10.7 mL. Parenchyma: The gland echotexture is heterogeneous. Thyroid vascularity is increased. Isthmus: 0.6 cm in maximum AP dimension. Estimated total number of nodules greater than or equal to 1 cm: 3. Academic Support Coordinator nodules are described as follows: 1. Location: Midportion, left thyroid lobe. Size: 1.5 x 0.8 x 1.5 cm, volume 0.83 mL. Nodule characteristics: Composition: Solid (2). Echogenicity: Isoechoic (1). Shape: Not taller than wide (0). Margins: Smooth (0). Echogenic Foci: None (0). ACR TI-RADS total points: 3 ACR TI-RADS category: 3 2. Location: Upper pole, right thyroid lobe.. Size: 1.9 x 1.0 x 1.9 cm, volume 1.82 mL. Nodule characteristics: Composition: Solid (2). Echogenicity: Hypoechoic (2). Shape: Not taller than wide (0). Margins: Smooth (0). Echogenic Foci: None (0). ACR TI-RADS total points: 4 ACR TI-RADS category: 4 3. Location: Midportion, right thyroid lobe. Size: 1.9 x 0.9 x 1.4 cm, volume 1.3 mL. Nodule characteristics: Composition: Solid (2). Echogenicity: Isoechoic (1). Shape: Not taller than wide (0). Margins: Smooth (0). Echogenic Foci: None (0). ACR TI-RADS total points: 3 ACR TI-RADS category: 3 Previous ultrasound for comparison from based a note dated from 06/28/2016 Pathology: [facility] Medical History (Updated 05/22/25 @ 11:37 by Eboni Bunch MD) Migraine IBS (irritable bowel syndrome) Right thyroid nodule Osteoporosis Hyperlipemia GERD (gastroesophageal reflux disease) Kirstin's thyroiditis HTN (hypertension) Surgical History (Updated 07/10/25 @ 13:20 by MARYBEL Cheng) Hx of ultrasound guided needle biopsy Hx of colonoscopy (~06/26/23) Family History Father No problems noted. Mother No problems noted. Sister Thyroid disease Social History Alcohol intake: current Alcohol intake frequency: does not drink Patient Tobacco Use Status: Never used Tobacco Physical Exam Vital Signs: Last Vital Signs Pulse 75 07/10/25 13:29 BP 120/76 07/10/25 13:29 Pulse Ox 96 07/10/25 13:29 Oxygen Delivery Method Room Air 07/10/25 13:29 BMI result Body Mass Index 24.2 Assessment & Plan Assessment & Plan (1) Right thyroid nodule: Code(s): E04.1 - Nontoxic single thyroid nodule Category: Medical Plan Assessment The patient has a right upper pole thyroid nodule that has increased in size to 1.92 cm which constitutes a 92% increase over 9 years, which increased the concerns for malignancy. Recent laboratory results confirm the patient is euthyroid. The patient reports voice loss and other symptoms; however, these are not definitively linked to the thyroid nodule or thyroid dysfunction at this time. Unfortunately, her FNA came back non-diagnostic, [place] category 1. We discussed that in this cases were FNA is nondiagnostic, we usually try to obtain a 2nd FNA as it is likely that this one will be able to provide us with a diagnosis. Plan Patient with postpone FNA until she is ready (she have some issues with insurance that she is not sure if his covering the procedure) We will tentatively schedule an appointment for 3 months from now and she will call us earlier if needed Coding Level of Care Code Est Pt Level 3 (96158) Diagnoses Right thyroid nodule E04.1
[2025-07-10 13:29] VITALS: BP 120/76; PULSE 75; O2SAT 96; BMI 24.2
--- OUTSIDE RECORDS SUMMARY | 2025-07-10 14:19 | XMS_ITS | Patient Health Record ---
Author Organization [facility] Address [address] [place] [address] Care Team Providers Care Chief Operator Synthesis Name Role Phone TANO MENDOZA Primary Care Provider Flo Ron Jr Unavailable [phone] Allergies No Known Allergies Reason For [...] Status Risk Notes Problem Colon cancer screening (482113709) Colon cancer screening (Z12.11) Active confirmed Problem Gastroesophageal reflux disease (073846640) GERD (gastroesophag eal reflux disease) (K21.9) Active confirmed Problem Irritable bowel syndrome (98623961) Irritable bowel syndrome, unspecified type (K58.9) Active confirmed Vital Signs Temperature 98.0 degrees Fahrenheit 03/11/2025 Blood pressure diastolic 01 mm Hg 03/11/2025 Height 62 in 03/11/2025 Blood pressure systolic 001 mm Hg 03/11/2025 Weight 134.2 lbs 03/11/2025 BMI 24.54 kg/m2 03/11/2025 Encounters Encounter Location Date Provider Diagnosis [facility] [address] [place] [phone] 03/11/2025 Flo Rolon Jr Irritable bowel syndrome, unspecified type K58.9 ; Colon cancer screening Z12.11 and GERD (gastroesophageal reflux disease) K21.9 [facility] [address] [place] [phone] 03/09/2025 Flo Rolon Jr [facility] [address] [place] [phone] 03/18/2025 Flo Rolon Jr Assessments Encounter Date [...] Provider Name:Flo richter , 03/15/2026 09:20:00 AM, [address] [place] [address], [address], [place], [address], Insurance Providers Payer Name Payer Address Payer Phone Subscriber Number Group Number Insured Name Patient Relationship to Insured Coverage Start Date Coverage End Date [facility] Insurance (revoPT) [address] [place] [id number] [phone] [id number] TIARA MATHEW Self - patient is the insured Medical (General) History Medical History History ICD Code hypertension Kirstin's thyroiditis Colonoscopy 07/02, normal but limited in certain areas, 5-year follow-up migraines Anxiety Surgical History Surgery Date(Month/Year)
--- OUTSIDE RECORDS SUMMARY | 2025-07-10 14:19 | XMS_ITS | Patient Health Record ---
Author Organization [facility] Address [address] [place] [address] Care Team Providers Care Search Engine Optimization Specialist Name Role Phone Bulmaro Toure MD Primary Care Provider Unavaila Chong Dukes Unavailable [phone] Reason For Referral No Information Medications Medication SIG (Take, Route, Frequency, Duration) Notes Start Date End Date Status Lisinopril Active Topamax Active Tenormin Active Limbitrol Active Problems Problem Type SNOMED Code ICD Code Onset Dates Problem Status W/U Status Risk Notes Problem Achilles bursitis (499795556) Achilles Tendonitis Bursitis (726.71) Active confirmed Problem Calcaneal spur (60870809) Calcaneal spur (726.73) Active confirmed Problem Plantar fasciitis (287016034) Plantar Fasciitis (728.71) Active confirmed Problem Tibialis tendinitis (50884531) Posterior Tibial Tendonitis (726.72) Active confirmed Plan Of Treatment No Information Insurance Providers Payer Name Payer Address Payer Phone Subscriber Number Group Number Insured Name Patient Relationship to Insured Coverage Start Date Coverage End Date [employer] ([employer]) [address] [place] [phone] [id number] Ashley Forte Self - patient is the insured Medical (General) History Medical History History ICD Code Headaches Migraines Chicken pox Measles Thyroid disorder Hypertension
== END 2025-07-10 13:54 | disposition home or self-care (01) ==
LOC: HO.ENCR 13:12
PROVIDERS: PCP Physician Assistant; Visit Provider Student in an Organized Health Care Education/Training Program
DX: E04.1 Nontoxic single thyroid nodule (principal)
CPT/HCPCS: 99213

== ENCOUNTER 2025-08-03 07:45 | Outpatient (AMB) | payer OTHER, SELFPAY ==
--- OUTSIDE RECORDS SUMMARY | 2025-08-03 07:48 | XMS_ITS | Patient Health Record ---
Author Organization [facility] Address [address] [place] [address] Care Team Providers Care Hvac Sales Representative Name Role Phone TANO MENDOZA Primary Care Provider Flo Ron Jr Unavailable [phone] Allergies No Known Allergies Reason For Referral No Information Medications Medication SIG (Take, Route, Frequency, Duration) Notes Start Date End Date Status Atorvastatin Calcium 10 MG Tablet 1 tablet Orally Once a day Active Butalbital-Acetaminophen 50-325 MG Tablet 1 tablet as needed Orally every 4 hrs Active Lisinopril 10 MG Tablet 1 tablet Orally Once a day Active Multi Adult Gummies - Tablet Chewable as directed Orally Active busPIRone HCl 10 MG Tablet 1 tablet Oral ly Twice a day Active MiraLax (colon prep) 17 GM/SCOOP Powder mixed with Gatorade or Crystal Light Orally begin at 5:00 p.m. the day before the procedure; Duration: 1 day 05/28/2023 Active chlordiazePOXIDE-Clidinium 5-2.5 MG Capsule 1 capsule before meals Orally Three times daily; Duration: 30 days 03/11/2025 Active Omeprazole 20 MG Capsule Delayed Release 1 capsule 1/2 to 1 hour before morning meal Orally Once a day Active Aspirin 81 81 MG Tablet Delayed Release 1 tablet Orally Once a day Active Topiramate 25 MG Tablet 1 tablet at bedt wang Orally Twice a day Active Atenolol 25 MG Tablet 1 tablet Orally On ce a day Active Amitriptyline HCl 50 MG Tablet 1 tablet at bedtime Orally Once a day Active SUMAtriptan Succinate 50 MG Tablet as directed Subcutaneous Once a day Active Immunizations Vaccine Route Administration Date Status Comme nts Influenza Unknown 05/30/2022 Administered Influenza Unknown 03/11/2025 Refused Social History Social History Drugs/Alcohol: Social Info Question Answer Notes Alcohol Screen Did you have a drink containing alcohol in the past year? 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 Problems Problem Type SNOMED Code ICD Code Onset Dates Problem Status W/U Status Risk Notes Problem Colon cancer screening (909759079) Colon cancer screening (Z12.11) Active confirmed Problem Gastroesophageal reflux disease (863114174) GERD (gastroesophag eal reflux disease) (K21.9) Active confirmed Problem Irritable bowel syndrome (02678731) Irritable bowel syndrome, unspecified type (K58.9) Active confirmed Vital Signs Temperature 98.0 degrees Fahrenheit 03/11/2025 Blood pressure diastolic 01 mm Hg 03/11/2025 Height 62 in 03/11/2025 Blood pressure systolic 001 mm Hg 03/11/2025 Weight 134.2 lbs 03/11/2025 BMI 24.54 kg/m2 03/11/2025 Encounters Encounter Location Date Provider Diagnosis [facility] [address] [place] [phone] 03/11/2025 Flo Rolon Jr Irritable bowel syndrome, unspecified type K58.9 ; Colon cancer screening Z12.11 and GERD (gastroesophageal reflux disease) K21.9 [facility] [address] [place] [phone] 03/09/[address] [facility] [address] [place] [phone] 03/18/2025 Flo Rolon Jr Assessments Encounter Date [...] Provider Name:Flo richter , 03/15/2026 09:20:00 AM, [address] [facility], [address], [place], [address], Insurance Providers Payer Name Payer Address Payer Phone Subscriber Number Group Number Insured Name Patient Relationship to Insured Coverage Start Date Coverage End Date [facility] [address] [place] [address] [id number] TIARA MATHEW Self - patient is the insured Medical (General) History Medical History History ICD Code hypertension Kirstin's thyroiditis Colonoscopy 07/02, normal but limited in certain areas, 5-year follow-up migraines Anxiety Surgical History Surgery Date(Month/Year)
--- OUTSIDE RECORDS SUMMARY | 2025-08-03 07:48 | XMS_ITS | Patient Health Record ---
Author Organization [facility] Address [address] [place] [address] Care Team Providers Care Senior Group Manager Name Role Phone Bulmaro Toure MD Primary Care Provider Unavaila Chong Dukes Unavailable [phone] Reason For Referral No Information Medications Medication SIG (Take, Route, Frequency, Duration) Notes Start Date End Date Status Lisinopril Active Topamax Active Tenormin Active Limbitrol Active Problems Problem Type SNOMED Code ICD Code Onset Dates Problem Status W/U Status Risk Notes Problem Achilles bursitis (928710357) Achilles Tendonitis Bursitis (726.71) Active confirmed Problem Calcaneal spur (39629979) Calcaneal spur (726.73) Active confirmed Problem Plantar fasciitis (595996683) Plantar Fasciitis (728.71) Active confirmed Problem Tibialis tendinitis (01007542) Posterior Tibial Tendonitis (726.72) Active confirmed Plan Of Treatment No Information Insurance Providers Payer Name Payer Address Payer Phone Subscriber Number Group Number Insured Name Patient Relationship to Insured Coverage Start Date Coverage End Date [employer] ([employer]) [address] [place] [id number] [phone] [id number] Ashley Forte Self - patient is the insured Medical (General) History Medical History History ICD Code Headaches Migraines Chicken pox Measles Thyroid disorder Hypertension
--- NOTE | 2025-08-03 07:53 | MHC.PC.OV ---
Vital Signs 08/03/25 08:00 Height 5 ft 2.83 in Weight 59.874 kg BMI 23.5 BP 130/86 Blood Pressure Location Lt brachial Position Sitting Respiration 18 Pulse 83 Pulse Source Pulse Oximeter Temp 98.3 F Temp Source Temporal Artery Scan Pulse Oximetry (%) 97 Oxygen Delivery Method Room Air Intake Visit Reasons: osteoporosis, resched. from 07/22 Radio Survey Worker Required: No Accompanied by: Self / Same As Patient Allergies No Known Allergies Allergy (Verified 08/03/25 07:53) Medication List - Last Reconciled 08/03/25 by SUSAN Sorenson alendronate (Fosamax) 70 mg PO QWEEK amitriptyline 50 mg PO DAILY aspirin 81 mg PO DAILY atorvastatin (Lipitor) 20 mg PO BEDTIME buspirone 10 mg PO BID PRN multivitamin 1 tab PO DAILY omeprazole 20 mg PO DAILY PRN sumatriptan succinate 100 mg PO Q4H PRN 30 days MDD 200mg /24 hrs topiramate 25 mg PO BID triamcinolone acetonide 0.1% 1 appl topical BID PRN HPI HPI Comments History of Present Illness Details 65-year-old female with history of hypertension, hyperlipidemia, Kirstin's, thyroid nodule, osteoporosis presents to the office today for follow-up. HTN- BP 130/86. No longer on antihypertensives Hyperlipidemia-on atorvastatin 20 mg daily, due to LDL 170. Due for updated lipid panel Kirstin's thyroiditis/thyroid nodule- following endocrinology. US thyroid- ACR TI-RADS category 3 and 4 Underwent failed biopsy, 06/26. Last TSH 1.75, not on levothyroxine. Osteoporosis-DXA scan 07/01/2025 showing worsening bone density, consistent with osteoporosis. Lumbar spine T-score of -3.2, left total hip T-score -2.2, left femoral neck T-score -2.2. She is not taking calcium and vitamin-D nor is she participating in weight-bearing exercise Prediabetes-A1c 5.8% Concerns: Still experiencing lightheadedness. Has been syncopized. She does feel weakness in the upper and lower extremities bilaterally. Reports extreme fatigue and paresthesias in the hands bilaterally no vision changes, weight loss, swelling, fevers, chills, dyspnea, chest pain, abdominal pain, dysuria, hematuria, cough. Follows with neurology, Dr. Santos, but has not addressed these concerns ROS: see hpi EXAM: Constitutional - Awake and Alert, No apparent distress Eyes - PERRL Cardiovascular - S1S2, RRR, No edema Respiratory - Normal lung expansion, Normal respiratory effort, No respiratory distress, CTA bilaterally Extremities - no calf tenderness bilaterally, no swelling MSK - normal inspection, normal ROM. No swelling Skin - Warm/Dry Neurological - Alert & oriented x3. CN II-XII in tact. Moving all extremities, equal strength, normal gait. Requires assistance when standing. Negative romberg [facility] Medical History (Updated 08/03/25 @ 08:21 by SUSAN Sorenson) Prediabetes Migraine IBS (irritable bowel syndrome) Right thyroid nodule Osteoporosis Hyperlipemia GERD (gastroesophageal reflux disease) Kirstin's thyroiditis HTN (hypertension) Surgical History (Updated 07/10/25 @ 13:20 by MARYBEL Cheng) Hx of ultrasound guided needle biopsy Hx of colonoscopy (~06/26/23) Family History Father No problems noted. Mother No problems noted. Sister Thyroid disease Social History Alcohol intake: current Alcohol intake frequency: does not drink Patient Tobacco Use Status: Never used Tobacco Physical exam (Primary Care) Vital Signs: Last Vital Signs Temp 98.3 F 08/03/25 08:00 Pulse 83 08/03/25 08:00 Resp 18 08/03/25 08:00 BP 140/86 H 08/03/25 08:00 Pulse Ox 97 08/03/25 08:00 Oxygen Delivery Method Room Air 08/03/25 08:00 BMI result Body Mass Index 23.5 Tobacco/Smoking Status: Tobacco use Status Patient Tobacco Use Status Never used Tobacco 08/03/25 07:55 Coding Level of Care Code Est Pt Level 4 (62559) Complex visit Add On G2211 Diagnoses Dizziness R42 HTN (hypertension) I10 Hyperlipemia E78.5 Osteoporosis M81.0 Prediabetes R73.03 Right thyroid nodule E04.1 Assessment & Plan Assessment & Plan (1) Dizziness: Code(s): R42 - Dizziness and giddiness Category: Medical Plan: w/ fatigue, paresthesia, weakness. Reviewed relevant labs-no anemia, she is euthyroid, renal function electrolyte levels are normal, iron levels normal. Liver function normal. Inflammatory markers normal. No B12 deficiency. Vitamin-D level is normal. Not consistent with orthostatic hypotension. No hypotension or hypoglycemia. Given chronicity of her symptoms, MRI of the brain is ordered. Advised to follow-up with neurology as well (2) HTN (hypertension): Code(s): I10 - Essential (primary) hypertension Category: Medical Plan: Controlled. We will continue monitoring (3) Hyperlipemia: Code(s): E78.5 - Hyperlipidemia, unspecified Category: Medical Plan: Lipid panel ordered to re-evaluate cholesterol levels since the initiation of atorvastatin. Continue atorvastatin 20 mg daily for now. Diet low in saturated fats and highly processed foods. (4) Osteoporosis: Code(s): M81.0 - Age-related osteoporosis without current pathological fracture Category: Medical Plan: Discussed Fosamax which is initiated. Counseled on side effects including black box warning. Recommend calcium and vitamin-D as well as weight-bearing exercise. (5) Prediabetes: Code(s): R73.03 - Prediabetes Category: Medical Plan: Counseled on prediabetes. Referred to dietitian. (6) Right thyroid nodule: Code(s): E04.1 - Nontoxic single thyroid nodule Category: Medical Plan: Continue following with endocrinology Orders: Orders MR head/brain wo con Today G43.909 - Migraine, unspecified, not intractable, without status migrainosus, R20.2 - Paresthesia of skin, R42 - Dizziness and giddiness, R51.9 - Headache, unspecified Basic Metabolic Panel Today E06.3 - Autoimmune thyroiditis, E78.5 - Hyperlipidemia, unspecified, I10 - Essential (primary) hypertension, M81.0 - Age-related osteoporosis without current pathological fracture, R73.03 - Prediabetes Hemoglobin A1c Today E06.3 - Autoimmune thyroiditis, E78.5 - Hyperlipidemia, unspecified, I10 - Essential (primary) hypertension, M81.0 - Age-related osteoporosis without current pathological fracture, R73.03 - Prediabetes TSH reflex Free T4 Today E06.3 - Autoimmune thyroiditis, E78.5 - Hyperlipidemia, unspecified, I10 - Essential (primary) hypertension, M81.0 - Age-related osteoporosis without current pathological fracture, R73.03 - Prediabetes Lipid Panel Today E78.5 - Hyperlipidemia, unspecified Referrals Outside [employer] Sales Representatives Nutrition Referral M81.0 - Age-related osteoporosis without current pathological fracture, R73.03 - Prediabetes Medications: New alendronate (Fosamax) 70 mg PO QWEEK 12 tabs 0RF
[2025-08-03 08:00] VITALS: BP 130/86; PULSE 83; RESP 18; TEMP 36.8; O2SAT 97; BMI 23.5
== END 2025-08-03 08:25 | disposition home or self-care (01) ==
LOC: HO.HMCHD 07:45
PROVIDERS: PCP Physician Assistant; Visit Provider Physician Assistant
DX: R42 Dizziness and giddiness (principal); I10 Essential (primary) hypertension; E78.5 Hyperlipidemia, unspecified; M81.0 Age-related osteoporosis without current pathological fracture; R73.03 Prediabetes; E04.1 Nontoxic single thyroid nodule